=== PATIENT | male | born 1955 | race Hispanic/Latino ===

== ENCOUNTER 2017-02-17 11:16 | Emergency (ER) | payer MEDICARE, OTHER ==
[2017-02-17 11:31] VITALS: TEMP 98.1
--- NOTE | 2017-02-17 11:53 | ED PDOC ---
HPI: Psych/Substance Abuse Time Seen by Provider: 02/17/17 11:53 Chief Complaint (Nursing): Alcohol Ingestion Chief Complaint (Provider): etoh History Per: Patient Additional Complaint(s): 61-year-old male with history of alcohol abuse and asthma presents to emergency department complaining of wheezing. Patient admits to drinking yesterday and today and states that he drinks daily. He arrives via ambulance after being found probably intoxicated. Patient states he is out of his asthma medications and needs a breathing treatment. Past Medical History Reviewed: Historical Data, Nursing Documentation, Vital Signs Vital Signs: Last Vital Signs Temp 98.1 F 02/17/17 11:20 Pulse 81 02/17/17 11:20 Resp 18 02/17/17 11:20 BP 129/75 02/17/17 11:20 Pulse Ox 95 02/17/17 11:20 - Medical History PMH: Asthma, Bipolar Disorder, Diabetes, HTN, Hypercholesterolemia, Hyperlipidemia - Surgical History Surgical History: No Surg Hx - Family History Family History: States: No Known Family Hx - Living Arrangements Living Arrangements: Alone - Social History Current smoker - smoking cessation education provided: Yes Alcohol: > 2 Drinks/Day Drugs: Denies - Home Medications Home Medications: Ambulatory Orders Medication Instructions Recorded Albuterol/Ipratropium [Duoneb 3 3 ml INH RQ4 #0 neb 07/11/15 mg/0.5 mg (3 ml) UD] Dextrose 50% [Dextrose 50% Inj] 0 ml IV STAT PRN #0 syr 07/11/15 Dextrose Oral [Glutose 15] 0 gm PO ONCE PRN #0 tube 07/11/15 Enoxaparin [Lovenox] 40 mg SC DAILY #0 syr 07/11/15 Folic Acid 1 mg PO DAILY #0 tab 07/11/15 Gabapentin [Neurontin] 300 mg PO TID #0 cap 07/11/15 Glucagon [Glucagen Diagnostic Kit] 0 mg IM STAT PRN #0 vial 07/11/15 Haloperidol [Haldol] 2 mg PO Q4 PRN #0 tab 07/11/15 Insulin Detemir [Levemir] 24 units SC AMHS #0 vial 07/11/15 Insulin Human Regular [HumuLIN R] 0 units SC ACHS #0 ml 07/11/15 LORazepam [Ativan] 2 mg IVP Q6 PRN #0 vial 07/11/15 Losartan [Cozaar] 25 mg PO DAILY #0 tab 07/11/15 Multimineral/Multivitamin 1 tab PO DAILY #0 tab 07/11/15 [Therapeutic-M Tab] Naphazoline/Pheniramine Opht 1 drop OU DAILY PRN #0 bottle 07/11/15 [Naphcon-A Opht] Nicotine 21 mg/24 hr [Nicoderm Cq] 1 patch TD DAILY #0 patch 07/11/15 Piperacillin/Tazobact [Zosyn] 2.25 gm IVPB Q8H #8 vial 07/11/15 Pravastatin Sodium [Pravachol] 80 mg PO DAILY #0 tab 07/11/15 QUEtiapine [SEROquel] 200 mg PO HS #0 tab 07/11/15 Thiamine [Vitamin B1 Tab] 100 mg PO DAILY #0 tab 07/11/15 Vancomycin 1 GM [Vancomycin 1GM in 1 gm IVPB Q12 #8 bag 07/11/15 Normal Saline Addvantage] Albuterol HFA [Ventolin HFA 90 1 puff IH Q6 PRN #1 inhaler 02/17/17 mcg/actuation (8 g)] - Allergies Allergies/Adverse Reactions: Allergies Allergy/AdvReac Type Severity Reaction Status Date / Time No Known Allergies Allergy Verified 02/17/17 11:20 Review of Systems ROS Statement: Except As Marked, All Systems Reviewed And Found Negative Constitutional: Negative for: Fever Cardiovascular: Negative for: Chest Pain Respiratory: Positive for: Wheezing Gastrointestinal: Negative for: Nausea, Vomiting Psych: Positive for: Other (etoh) Physical Exam - Reviewed Nursing Documentation Reviewed: Yes Vital Signs Reviewed: Yes - Physical Exam Appears: Positive for: Well, Non-toxic, No Acute Distress Skin: Negative for: Rash Eye Exam: Positive for: Normal appearance, EOMI, PERRL Cardiovascular/Chest: Positive for: Regular Rate, Rhythm Respiratory: Positive for: Wheezing (Diffuse inspiratory and expiratory wheezing ) Extremity: Positive for: Normal ROM. Negative for: Pedal Edema Neurologic/Psych: Positive for: Alert, Oriented - Laboratory Results Result Diagrams: 02/17/17 13:00 02/17/17 13:00 - ECG O2 Sat by Pulse Oximetry: 95 Pulse Ox Interpretation: Normal Medical Decision Making Medical Decision Makin-year-old intoxicated male with asthma exacerbation. Plan: CBC CMP BAL Duoneb x 1 Patient feels better after DuoNeb treatment. He tolerated tray of food and is noted to be ambulatory with steady gait. Prescription given for Ventolin inhaler. Patient was advised to follow up with primary doctor or clinic. Disposition - Clinical Impression Clinical Impression: Alcohol abuse with intoxication, Asthma exacerbation - Patient ED Disposition Is Patient to be Admitted: No Counseled Patient/Family Regarding: Studies Performed, Diagnosis, Need For Followup, Rx Given - Disposition Referrals: [facility] [Outside] Disposition: Routine/Home Disposition Time: 13:39 Condition: STABLE Additional Instructions: Take prescription meds as directed. Follow up with primary doctor or clinic in 2 -3 days. Prescriptions: Albuterol HFA [Ventolin HFA 90 mcg/actuation (8 g)] 1 puff IH Q6 PRN #1 inhaler PRN Reason: Cough Instructions: Asthma (ED), Alcohol Intoxication (ED) Forms: [employer] (Mongolian) Results - Lab Results Lab Results: 02/17/17 02/17/17 13:00 13:00 WBC 7.6 RBC 4.62 Hgb 14.8 Hct 44.7 MCV 96.7 H MCH 32.0 H MCHC 33.1 RDW 13.7 Plt Count 243 D MPV 7.1 L Neut % (Auto) 51.9 Lymph % (Auto) 38.6 [place] % (Auto) 7.1 Eos % (Auto) 1.2 Baso % (Auto) 1.2 Neut # 3.9 Lymph # 2.9 [place] # 0.5 Eos # 0.1 Baso # 0.1 Sodium 145 Potassium 3.9 Chloride 102 Carbon Dioxide 25 Anion Gap 22 H BUN 9 Creatinine 0.7 L Est GFR ( Amer) > 60 Est GFR (Non-Af Amer) > 60 Random Glucose 154 H Calcium 9.3 Total Bilirubin 0.5 AST 87 H ALT 68 Alkaline Phosphatase 88 Total Protein 7.7 Albumin 4.2 Globulin 3.5 Albumin/Globulin Ratio 1.2 Alcohol, Quantitative 278 H
[2017-02-17] MEDS ORDERED: Albuterol-Ipratrop 3 mg / 0.5 (3 ml) UD INH STA (12:07)
[2017-02-17] MEDS ORDERED: Albuterol-Ipratrop 3 mg / 0.5 (3 ml) UD ONE (12:29)
[2017-02-17 13:12] LABS: BASO # 0.1 K/uL (0.0-0.2); BASO % 1.2 % (0.0-2.0); EOS # 0.1 K/uL (0.0-0.7); EOS % 1.2 % (0.0-4.0); HEMATOCRIT 44.7 % (35.0-51.0); LYMPH # 2.9 K/uL (1.0-4.3); LYMPH % 38.6 % (20.0-40.0); MEAN CELL VOLUME 96.7 fl (80.0-94.0); MEAN CORPUSCULAR HGB CONC 33.1 g/dL (33.0-37.0); MEAN PLATELET VOLUME 7.1 fl (7.2-11.7); MONO # 0.5 K/uL (0.0-0.8); MONO % 7.1 % (0.0-10.0); NEUT # 3.9 K/uL (1.8-7.0); NEUT % 51.9 % (50.0-75.0); RED CELL DISTRIBUTION WIDTH 13.7 % (11.5-14.5); WHITE BLOOD COUNT 7.6 K/uL (4.8-10.8)
[2017-02-17 13:29] LABS: ALB/GLOB RATIO 1.2 (1.0-2.1); ALCOHOL SERUM 278 mg/dl (0-10); ALKALINE PHOSPHATASE 88 U/L (38-126); ALT/SGPT 68 U/L (21-72); AST/SGOT 87 U/L (17-59); BILIRUBIN,TOTAL 0.5 mg/dl (0.2-1.3); BLOOD UREA NITROGEN 9 mg/dl (9-20); CALCIUM 9.3 mg/dL (8.4-10.2); CARBON DIOXIDE 25 mmol/L (22-30); CHLORIDE 102 mmol/L (98-107); GFR AFRICAN-AMERICAN > 60; GLUCOSE,RANDOM 154 mg/dL (75-110); POTASSIUM 3.9 MMOL/L (3.6-5.0); SODIUM 145 mmol/l (132-148); TOTAL PROTEIN 7.7 G/DL (6.3-8.2)
[2017-02-17 14:27] VITALS: BP 126/80; PULSE 80; RESP 20; O2SAT 99
== END 2017-02-17 14:28 | disposition home or self-care (01) ==
LOC: H.ER 11:16
DX: J45.901 Unspecified asthma with (acute) exacerbation (principal); F10.129 Alcohol abuse with intoxication, unspecified; Y90.8 Blood alcohol level of 240 mg/100 ml or more; F17.210 Nicotine dependence, cigarettes, uncomplicated
CPT/HCPCS: 80053; 85025; 94640; 99282; G0480

== ENCOUNTER 2017-05-24 18:59 | Emergency (ER) | payer MEDICARE, OTHER ==
[2017-05-24 19:03] VITALS: TEMP 98
[2017-05-24 21:15] LABS: BASO % 0.7 % (0.0-2.0); EOS % 0.1 % (0.0-4.0); HEMOGLOBIN 14.1 g/dL (12.0-18.0); LYMPH # 1.6 K/uL (1.0-4.3); LYMPH % 29.4 % (20.0-40.0); MEAN CELL VOLUME 95.8 fl (80.0-94.0); MEAN CORPUSCULAR HEMOGLOBIN 31.2 pg (27.0-31.0); MEAN CORPUSCULAR HGB CONC 32.5 g/dL (33.0-37.0); MEAN PLATELET VOLUME 7.3 fl (7.2-11.7); MONO # 0.3 K/uL (0.0-0.8); MONO % 6.1 % (0.0-10.0); NEUT # 3.5 K/uL (1.8-7.0); NEUT % 63.7 % (50.0-75.0); NRBC % 0.1 % (0.0-0.0); RBC 4.52 Mil/uL (4.40-5.90); RED CELL DISTRIBUTION WIDTH 13.7 % (11.5-14.5); WHITE BLOOD COUNT 5.5 K/uL (4.8-10.8)
[2017-05-24 21:37] LABS: BLOOD UREA NITROGEN 14 mg/dl (9-20); CALCIUM 8.8 mg/dL (8.4-10.2); GFR AFRICAN-AMERICAN > 60; GFR NON-AFRICAN AMERICAN > 60
--- NOTE | 2017-05-24 21:45 | ED PDOC ---
HPI: Psych/Substance Abuse Time Seen by Provider: 05/24/17 19:14 Chief Complaint (Nursing): Psychiatric Evaluation Chief Complaint (Provider): Alcohol Intoxication History Per: Patient History/Exam Limitations: intoxication Modifying Factor(s): Alcohol Associated Symptoms: Depression Additional Complaint(s): 61 year old male presents to the emergency department with alcohol intoxication. Also complaining of auditory and visual hallucinations. He mentions he wants to hurt himself and has a history of schizophrenia. Limited and further history could not be obtained due to alcohol intoxication. PCP: Family Provider Past Medical History Reviewed: Historical Data, Nursing Documentation, Vital Signs Vital Signs: Last Vital Signs Temp 98 F 05/24/17 19:00 Pulse 121 H 05/24/17 19:00 Resp 18 05/24/17 19:00 BP 155/95 H 05/24/17 19:00 Pulse Ox 98 05/24/17 19:00 - Medical History PMH: Asthma, Bipolar Disorder, Diabetes, Fractures, HTN, Hypercholesterolemia, Hyperlipidemia, Schizophrenia Denies: Alzheimer's Disease, Anemia, Anxiety, Arthritis, Atrial Fibrillation , Bronchitis, CAD, Cardia Arrhythmia, CHF, COPD, Crohn's Disease, Dementia, Depression, Diverticulitis, Emphysema, Gastritis, Gall Bladder Disease, HIV, Hyperthyroidism, Hypothyroidism, Kidney Stones, Migraine, Mitral Valve Prolapse , Multiple Sclerosis, Osteoporosis, Pancreatitis, Paranoia, Parkinson's Disease , Peripheral Edema, Pneumonia, Post Traumatic Stress Disorder, Pulmonary Embolism, Chronic Kidney Disease, Rheumatoid Arthritis, Seizures, Sickle Cell Disease, Sexually Transmitted Disease, Sleep Apnea, TIA - Surgical History Surgical History: Denies: Appendectomy, CABG, Carotid Endarterectomy, Cholecystectomy, Coronary Stent, Pacemaker, Tonsillectomy - Family History Family History: States: Unknown Family Hx - Home Medications Home Medications: Ambulatory Orders Medication Instructions Recorded Albuterol/Ipratropium [Duoneb 3 3 ml INH RQ4 #0 neb 07/11/15 mg/0.5 mg (3 ml) UD] Dextrose 50% [Dextrose 50% Inj] 0 ml IV STAT PRN #0 syr 07/11/15 Dextrose Oral [Glutose 15] 0 gm PO ONCE PRN #0 tube 07/11/15 Enoxaparin [Lovenox] 40 mg SC DAILY #0 syr 07/11/15 Folic Acid 1 mg PO DAILY #0 tab 07/11/15 Gabapentin [Neurontin] 300 mg PO TID #0 cap 07/11/15 Glucagon [Glucagen Diagnostic Kit] 0 mg IM STAT PRN #0 vial 07/11/15 Haloperidol [Haldol] 2 mg PO Q4 PRN #0 tab 07/11/15 Insulin Detemir [Levemir] 24 units SC AMHS #0 vial 07/11/15 Insulin Human Regular [HumuLIN R] 0 units SC ACHS #0 ml 07/11/15 LORazepam [Ativan] 2 mg IVP Q6 PRN #0 vial 07/11/15 Losartan [Cozaar] 25 mg PO DAILY #0 tab 07/11/15 Multimineral/Multivitamin 1 tab PO DAILY #0 tab 07/11/15 [Therapeutic-M Tab] Naphazoline/Pheniramine Opht 1 drop OU DAILY PRN #0 bottle 07/11/15 [Naphcon-A Opht] Nicotine 21 mg/24 hr [Nicoderm Cq] 1 patch TD DAILY #0 patch 07/11/15 Piperacillin/Tazobact [Zosyn] 2.25 gm IVPB Q8H #8 vial 07/11/15 Pravastatin Sodium [Pravachol] 80 mg PO DAILY #0 tab 07/11/15 QUEtiapine [SEROquel] 200 mg PO HS #0 tab 07/11/15 Thiamine [Vitamin B1 Tab] 100 mg PO DAILY #0 tab 07/11/15 Vancomycin 1 GM [Vancomycin 1GM in 1 gm IVPB Q12 #8 bag 07/11/15 Normal Saline Addvantage] Albuterol HFA [Ventolin HFA 90 1 puff IH Q6 PRN #1 inhaler 02/17/17 mcg/actuation (8 g)] - Allergies Allergies/Adverse Reactions: Allergies Allergy/AdvReac Type Severity Reaction Status Date / Time No Known Allergies Allergy Verified 02/17/17 11:20 Review of Systems ROS Statement: Except As Marked, All Systems Reviewed And Found Negative (As per HPI, otherwise negative and history is limited due to intoxication) Psych: Positive for: Other (Auditory and visual hallucination) Physical Exam - Reviewed Nursing Documentation Reviewed: Yes Vital Signs Reviewed: Yes - Physical Exam Appears: Positive for: Non-toxic, No Acute Distress Head Exam: Positive for: ATRAUMATIC, NORMAL INSPECTION, NORMOCEPHALIC Skin: Positive for: Normal Color, Warm, Dry Cardiovascular/Chest: Positive for: Regular Rate, Rhythm. Negative for: Murmur Respiratory: Positive for: Normal Breath Sounds. Negative for: Accessory Muscle Use, Respiratory Distress Gastrointestinal/Abdominal: Positive for: Normal Exam, Soft. Negative for: Tenderness Extremity: Positive for: Normal ROM. Negative for: Pedal Edema Neurologic/Psych: Positive for: Alert, Oriented, Mood/Affect (weeping depressed affect), Other (Smells of alcohol ) - Laboratory Results Result Diagrams: 05/24/17 20:02 05/24/17 20:02 - ECG O2 Sat by Pulse Oximetry: 98 (RA) Pulse Ox Interpretation: Normal Medical Decision Making Medical Decision Making: Time: 19:36 Initial impression: schizophrenia, depression, and alcohol abuse Initial plan: Alcohol Serum Test Basic Metabolic Panel Drug Screen, Urine Test Salicylate Test Ativan 2 mg IM Urinalysis Time: 20:02 Alcohol, Quantitative: 405 High 05:30 --Pt is awake, alert and oriented. Pt was cleared by crisis with diagnosis of alcohol use disorder by Daniel Kuhn under Dr. Mena. --Upon provider evaluation patient is medically stable, and requires no further treatment in the ED at this time. Patient will be discharged home. Counseling was provided and all questions were answered regarding diagnosis. There is agreement to discharge plan. Return if symptoms persist or worsen. Scribe Attestation: Documented by Yo Pop, acting as a scribe for Kaleb White MD. Provider Scribe Attestation: All medical record entries made by the Scribe were at my direction and personally dictated by me. I have reviewed the chart and agree that the record accurately reflects my personal performance of the history, physical exam, medical decision making, and the department course for this patient. I have also personally directed, reviewed, and agree with the discharge instructions and disposition Disposition - Clinical Impression Clinical Impression: Alcohol abuse with intoxication - Disposition Referrals: Alcoholics Anonymous [Outside] [facility] [Outside] Disposition Time: 05:30 Condition: STABLE Instructions: Depression (ED), Abuse of Alcohol (ED), Suicide Prevention for Adults (DC) Forms: [employer] (Yoruba) Print Language: LUXEMBOURGER
[2017-05-24 23:11] LABS: BARBITURATES, UR NEGATIVE (NEGATIVE); BENZODIAZEPINES, UR NEGATIVE (NEGATIVE); OPIATES, UR NEGATIVE (NEGATIVE); PHENCYCLIDINE, UR NEGATIVE (NEGATIVE)
[2017-05-25 02:16] LABS: URINE CLARITY SLIGHT-CLOUDY (Clear); URINE COLOR AMBER (YELLOW); URINE GLUCOSE (UA) 50 mg/dL (Normal)
[2017-05-25 02:17] LABS: URINE BILIRUBIN NEGATIVE (NEGATIVE); URINE BLOOD SMALL (NEGATIVE); URINE PROTEIN 100 mg/dL (NEGATIVE)
[2017-05-25 02:18] LABS: SQUAMOUS EPITHIAL 1 /hpf (0-5); URINE LEUKOCYTE ESTERASE NEGATIVE Leu/uL (Negative); URINE NITRATE NEGATIVE (NEGATIVE)
[2017-05-25 06:48] VITALS: BP 145/90; PULSE 99; RESP 16; O2SAT 95
== END 2017-05-25 06:48 | disposition home or self-care (01) ==
LOC: H.ER 18:59
DX: F10.129 Alcohol abuse with intoxication, unspecified (principal); E11.9 Type 2 diabetes mellitus without complications; E78.00 Pure hypercholesterolemia, unspecified; F20.9 Schizophrenia, unspecified; F31.9 Bipolar disorder, unspecified; I10 Essential (primary) hypertension; J45.909 Unspecified asthma, uncomplicated; Z79.4 Long term (current) use of insulin
CPT/HCPCS: 80048; 81003; 85025; 96372; 99283; G0480; J2060

== ENCOUNTER 2017-05-26 18:35 | Emergency (ER) | payer MEDICARE ==
[2017-05-26 18:39] VITALS: RESP 18; TEMP 98.2
--- NOTE | 2017-05-26 21:22 | ED PDOC ---
HPI: Psych/Substance Abuse Time Seen by Provider: 05/26/17 18:48 Chief Complaint (Nursing): Alcohol Ingestion Chief Complaint (Provider): alcohol intoxication ED Caveat: Intoxicated Additional Complaint(s): BIBEMS for intoxication and hearing voices and feeling depressed. Pt poor historian due to intoxication. Poor concentration. Answer questions unintelligibly. Past Medical History Vital Signs: Last Vital Signs Temp 98.2 F 05/26/17 18:37 Pulse 106 H 05/26/17 18:37 Resp 18 05/26/17 18:37 BP 140/95 H 05/26/17 18:37 Pulse Ox 98 05/26/17 18:37 - Medical History PMH: Asthma, Bipolar Disorder, Diabetes, Fractures, HTN, Hypercholesterolemia, Hyperlipidemia, Schizophrenia Denies: Alzheimer's Disease, Anemia, Anxiety, Arthritis, Atrial Fibrillation , Bronchitis, CAD, Cardia Arrhythmia, CHF, COPD, Crohn's Disease, Dementia, Depression, Diverticulitis, Emphysema, Gastritis, Gall Bladder Disease, Hepatitis, HIV, Hyperthyroidism, Hypothyroidism, Kidney Stones, Migraine, Mitral Valve Prolapse, Multiple Sclerosis, Osteoporosis, Pancreatitis, Paranoia , Parkinson's Disease, Peripheral Edema, Pneumonia, Post Traumatic Stress Disorder, Pulmonary Embolism, Chronic Kidney Disease, Rheumatoid Arthritis, Seizures, Sickle Cell Disease, Sexually Transmitted Disease, Sleep Apnea, TIA Other PMH: Above pulled from previous charts - Surgical History Surgical History: Denies: Appendectomy, CABG, Carotid Endarterectomy, Cholecystectomy, Coronary Stent, Pacemaker, Tonsillectomy - Family History Family History: States: Unknown Family Hx - Home Medications Home Medications: Ambulatory Orders Medication Instructions Recorded Albuterol/Ipratropium [Duoneb 3 3 ml INH RQ4 #0 neb 07/11/15 mg/0.5 mg (3 ml) UD] Dextrose 50% [Dextrose 50% Inj] 0 ml IV STAT PRN #0 syr 07/11/15 Dextrose Oral [Glutose 15] 0 gm PO ONCE PRN #0 tube 07/11/15 Enoxaparin [Lovenox] 40 mg SC DAILY #0 syr 07/11/15 Folic Acid 1 mg PO DAILY #0 tab 07/11/15 Gabapentin [Neurontin] 300 mg PO TID #0 cap 07/11/15 Glucagon [Glucagen Diagnostic Kit] 0 mg IM STAT PRN #0 vial 02/23/16 Haloperidol [Haldol] 2 mg PO Q4 PRN #0 tab 07/11/15 Insulin Detemir [Levemir] 24 units SC AMHS #0 vial 07/11/15 Insulin Human Regular [HumuLIN R] 0 units SC ACHS #0 ml 07/11/15 LORazepam [Ativan] 2 mg IVP Q6 PRN #0 vial 07/11/15 Losartan [Cozaar] 25 mg PO DAILY #0 tab 07/11/15 Multimineral/Multivitamin 1 tab PO DAILY #0 tab 07/11/15 [Therapeutic-M Tab] Naphazoline/Pheniramine Opht 1 drop OU DAILY PRN #0 bottle 07/11/15 [Naphcon-A Opht] Nicotine 21 mg/24 hr [Nicoderm Cq] 1 patch TD DAILY #0 patch 07/11/15 Piperacillin/Tazobact [Zosyn] 2.25 gm IVPB Q8H #8 vial 07/11/15 Pravastatin Sodium [Pravachol] 80 mg PO DAILY #0 tab 07/11/15 QUEtiapine [SEROquel] 200 mg PO HS #0 tab 07/11/15 Thiamine [Vitamin B1 Tab] 100 mg PO DAILY #0 tab 07/11/15 Vancomycin 1 GM [Vancomycin 1GM in 1 gm IVPB Q12 #8 bag 07/11/15 Normal Saline Addvantage] Albuterol HFA [Ventolin HFA 90 1 puff IH Q6 PRN #1 inhaler 02/17/17 mcg/actuation (8 g)] - Allergies Allergies/Adverse Reactions: Allergies Allergy/AdvReac Type Severity Reaction Status Date / Time No Known Allergies Allergy Verified 02/17/17 11:20 Review of Systems Review Of Systems: ROS cannot be obtained secondary to pt's inabilty to answer questions. Physical Exam - Reviewed Nursing Documentation Reviewed: Yes Vital Signs Reviewed: Yes - Physical Exam Appears: Positive for: In Acute Distress (tearful and intoxicated) Head Exam: Positive for: ATRAUMATIC, NORMOCEPHALIC Skin: Positive for: Warm, Dry Eye Exam: Positive for: EOMI, Conjunctival injection ENT: Positive for: Pharynx Is (clear with tacky mucus membranes) Neck: Positive for: Painless ROM, Supple Cardiovascular/Chest: Positive for: Regular Rate, Rhythm, Chest Non Tender. Negative for: Murmur Respiratory: Positive for: Normal Breath Sounds. Negative for: Wheezing Gastrointestinal/Abdominal: Positive for: Soft. Negative for: Tenderness Back: Positive for: Normal Inspection. Negative for: Decreased ROM Extremity: Positive for: Normal ROM. Negative for: Deformity Lymphatic: Negative for: Adenopathy Neurologic/Psych: Positive for: Oriented (x2), Other (slurred speech). Negative for: Motor/Sensory Deficits - Laboratory Results Result Diagrams: 05/26/17 23:43 05/26/17 23:43 - ECG O2 Sat by Pulse Oximetry: 98 Disposition - Clinical Impression Clinical Impression: Alcohol abuse - Patient ED Disposition Is Patient to be Admitted: Transfer of Care - Disposition Disposition: Transfer of Care Disposition Time: 00:00 Condition: IMPROVED Patient Signed Over To: Man Coleman Handoff Comments: Pending ER workup, reassessment and final ER disposition
[2017-05-26 23:48] LABS: BASO % 1.1 % (0.0-2.0); EOS # 0.1 K/uL (0.0-0.7); EOS % 1.6 % (0.0-4.0); HEMOGLOBIN 13.6 g/dL (12.0-18.0); LYMPH # 1.9 K/uL (1.0-4.3); LYMPH % 45.4 % (20.0-40.0); MEAN CELL VOLUME 94.7 fl (80.0-94.0); MEAN CORPUSCULAR HEMOGLOBIN 31.2 pg (27.0-31.0); MEAN PLATELET VOLUME 7.3 fl (7.2-11.7); MONO # 0.4 K/uL (0.0-0.8); MONO % 8.7 % (0.0-10.0); NEUT # 1.8 K/uL (1.8-7.0); NEUT % 43.2 % (50.0-75.0); NRBC % 0.1 % (0.0-0.0); RBC 4.36 Mil/uL (4.40-5.90); RED CELL DISTRIBUTION WIDTH 13.9 % (11.5-14.5); WHITE BLOOD COUNT 4.1 K/uL (4.8-10.8)
[2017-05-27 00:03] LABS: ALB/GLOB RATIO 1.2 (1.0-2.1); ALBUMIN 4.2 g/dL (3.5-5.0); ALT/SGPT 84 U/L (21-72); AST/SGOT 133 U/L (17-59); BLOOD UREA NITROGEN 12 mg/dl (9-20); CALCIUM 9.4 mg/dL (8.4-10.2); GFR AFRICAN-AMERICAN > 60; GFR NON-AFRICAN AMERICAN > 60
--- NOTE | 2017-05-27 00:44 | ED PDOC ---
- Laboratory Results Result Diagrams: 05/26/17 23:43 05/26/17 23:43 - ECG O2 Sat by Pulse Oximetry: 98 (RA) Pulse Ox Interpretation: Normal Medical Decision Making Medical Decision Making: Time: 00:00 Patient was endorsed to me by Dr. Keren Bee as of this time. Pending clinical sobriety and crisis evaluation. Labs reviewed, alcohol is 266. Time: 03:54 Crisis made aware of patient. Time:05:47 Discussed with rice field worker and patient will be discharged per Dr. Mena Scribe Attestation: Documented by Mary Carvajal, acting as a scribe for Man Coleman MD Provider Scribe Attestation: All medical record entries made by the Scribe were at my direction and personally dictated by me. I have reviewed the chart and agree that the record accurately reflects my personal performance of the history, physical exam, medical decision making, and the department course for this patient. I have also personally directed, reviewed, and agree with the discharge instructions and disposition. Disposition Counseled Patient/Family Regarding: Diagnosis, Need For Followup - Clinical Impression Clinical Impression: Alcohol abuse - POA Present On Arrival: None - Disposition Disposition: Routine/Home Disposition Time: 05:47 Condition: IMPROVED Additional Instructions: follow up with outpatient psychiatry return to the ED with any worsening or concerning symptoms Instructions: Alcohol Intoxication (ED) Forms: [employer] (Cape Verdean)
[2017-05-27 03:35] VITALS: O2SAT 98
[2017-05-27 06:06] VITALS: BP 135/85; PULSE 81
[2017-05-27] MEDS ORDERED: Thiamine 100 mg/ml Inj ONE (14:58)
== END 2017-05-27 06:05 | disposition home or self-care (01) ==
LOC: H.ER 18:35
DX: F10.129 Alcohol abuse with intoxication, unspecified (principal); F20.9 Schizophrenia, unspecified; F31.9 Bipolar disorder, unspecified; E11.9 Type 2 diabetes mellitus without complications; E78.00 Pure hypercholesterolemia, unspecified; I10 Essential (primary) hypertension; J45.909 Unspecified asthma, uncomplicated; Z79.4 Long term (current) use of insulin
CPT/HCPCS: 80053; 82948; 85025; 99283; G0480

== ENCOUNTER 2017-05-27 14:15 | Emergency (ER) | payer MEDICARE ==
[2017-05-27 14:19] VITALS: RESP 18; TEMP 98; O2SAT 95
--- NOTE | 2017-05-27 14:36 | ED PDOC ---
HPI: Altered Mental Status Time Seen by Provider: 05/27/17 14:21 Chief Complaint (Nursing): Altered Mental Status Chief Complaint (Provider): Altered Mental Status History Per: EMS History/Exam Limitations: Clinical Condition Onset/Duration Of Symptoms: Hrs (prior to arrival) Additional Complaint(s): 61 year old male presents to the emergency department via EMS after being called for possible seizure prior to arrival. Upon arrival, EMS noted patient to be shaking while standing and remaining awake. Patient has a history of daily alcohol abuse. Unknown when last drink was. Past Medical History Reviewed: Historical Data, Nursing Documentation, Vital Signs Vital Signs: Last Vital Signs Temp 98.0 F 05/27/17 14:17 Pulse 124 H 05/27/17 14:17 Resp 18 05/27/17 14:17 BP 178/110 H 05/27/17 14:17 Pulse Ox 95 05/27/17 14:17 - Medical History PMH: Asthma, Bipolar Disorder, Diabetes, Fractures, HTN, Hypercholesterolemia, Hyperlipidemia, Schizophrenia Denies: Alzheimer's Disease, Anemia, Anxiety, Arthritis, Atrial Fibrillation , Bronchitis, CAD, Cardia Arrhythmia, CHF, COPD, Crohn's Disease, Dementia, Depression, Diverticulitis, Emphysema, Gastritis, Gall Bladder Disease, Hepatitis, HIV, Hyperthyroidism, Hypothyroidism, Kidney Stones, Migraine, Mitral Valve Prolapse, Multiple Sclerosis, Osteoporosis, Pancreatitis, Paranoia , Parkinson's Disease, Peripheral Edema, Pneumonia, Post Traumatic Stress Disorder, Pulmonary Embolism, Chronic Kidney Disease, Rheumatoid Arthritis, Seizures, Sickle Cell Disease, Sexually Transmitted Disease, Sleep Apnea, TIA - Surgical History Surgical History: Denies: Appendectomy, CABG, Carotid Endarterectomy, Cholecystectomy, Coronary Stent, Pacemaker, Tonsillectomy - Family History Family History: States: Unknown Family Hx - Home Medications Home Medications: Ambulatory Orders Medication Instructions Recorded Albuterol/Ipratropium [Duoneb 3 3 ml INH RQ4 #0 neb 07/11/15 mg/0.5 mg (3 ml) UD] Dextrose 50% [Dextrose 50% Inj] 0 ml IV STAT PRN #0 syr 07/11/15 Dextrose Oral [Glutose 15] 0 gm PO ONCE PRN #0 tube 07/11/15 Enoxaparin [Lovenox] 40 mg SC DAILY #0 syr 07/11/15 Folic Acid 1 mg PO DAILY #0 tab 07/11/15 Gabapentin [Neurontin] 300 mg PO TID #0 cap 07/11/15 Glucagon [Glucagen Diagnostic Kit] 0 mg IM STAT PRN #0 vial 07/11/15 Haloperidol [Haldol] 2 mg PO Q4 PRN #0 tab 07/11/15 Insulin Detemir [Levemir] 24 units SC AMHS #0 vial 07/11/15 Insulin Human Regular [HumuLIN R] 0 units SC ACHS #0 ml 07/11/15 LORazepam [Ativan] 2 mg IVP Q6 PRN #0 vial 07/11/15 Losartan [Cozaar] 25 mg PO DAILY #0 tab 07/11/15 Multimineral/Multivitamin 1 tab PO DAILY #0 tab 07/11/15 [Therapeutic-M Tab] Naphazoline/Pheniramine Opht 1 drop OU DAILY PRN #0 bottle 07/11/15 [Naphcon-A Opht] Nicotine 21 mg/24 hr [Nicoderm Cq] 1 patch TD DAILY #0 patch 07/11/15 Piperacillin/Tazobact [Zosyn] 2.25 gm IVPB Q8H #8 vial 07/11/15 Pravastatin Sodium [Pravachol] 80 mg PO DAILY #0 tab 07/11/15 QUEtiapine [SEROquel] 200 mg PO HS #0 tab 07/11/15 Thiamine [Vitamin B1 Tab] 100 mg PO DAILY #0 tab 07/11/15 Vancomycin 1 GM [Vancomycin 1GM in 1 gm IVPB Q12 #8 bag 07/11/15 Normal Saline Addvantage] Albuterol HFA [Ventolin HFA 90 1 puff IH Q6 PRN #1 inhaler 02/17/17 mcg/actuation (8 g)] chlordiazePOXIDE [Chlordiazepoxide 25 mg PO Q8 #9 cap 05/27/17 HCl] - Allergies Allergies/Adverse Reactions: Allergies Allergy/AdvReac Type Severity Reaction Status Date / Time No Known Allergies Allergy Verified 02/17/17 11:20 Review of Systems Review Of Systems: ROS cannot be obtained secondary to pt's inabilty to answer questions. (Patient is unable to provide history due to clinical condition) Physical Exam - Reviewed Nursing Documentation Reviewed: Yes Vital Signs Reviewed: Yes - Physical Exam Appears: Positive for: Non-toxic, No Acute Distress Head Exam: Positive for: ATRAUMATIC, NORMAL INSPECTION, NORMOCEPHALIC Skin: Positive for: Normal Color, Warm, Dry Eye Exam: Positive for: Normal appearance, EOMI, PERRL Neck: Positive for: Normal, Painless ROM, Supple Cardiovascular/Chest: Positive for: Regular Rate, Rhythm. Negative for: Murmur Respiratory: Positive for: Normal Breath Sounds (bilaterally). Negative for: Accessory Muscle Use, Respiratory Distress Gastrointestinal/Abdominal: Positive for: Normal Exam, Soft. Negative for: Tenderness Extremity: Positive for: Normal ROM (Full range of motion). Negative for: Pedal Edema Neurologic/Psych: Positive for: Alert (Awake but confused), Oriented (x0), Other (Equal strength noted to all extremities with no motor or sensory deficits noted. ) - Laboratory Results Result Diagrams: 05/27/17 15:10 05/27/17 15:10 - ECG O2 Sat by Pulse Oximetry: 95 (RA) Pulse Ox Interpretation: Normal - Progress Re-evaluation Time: 16:47 Condition: Improved (Awake alert oriented x 3 no tremors) Medical Decision Making Medical Decision Making: Time:1426 Initial impression: Possible seizure in setting of known daily alcohol abuse Initial plan: --EKG --Alcohol Serum --CMP --Drug Screen, Urine --Urine DIP --CBC w. diff --Librium 25 mg PO --Sodium Chloride 1L IV --Vitamin B1 inj 100 mg IM --Chest x-ray --Head CT --Reevaluation Time: 1442 --Chest x-ray FINDINGS: LUNGS: No active pulmonary disease. PLEURA: No significant pleural effusion identified, no pneumothorax apparent. CARDIOVASCULAR: Cardiomediastinal silhouette unchanged. OSSEOUS STRUCTURES: Unchanged. VISUALIZED UPPER ABDOMEN: Normal. OTHER FINDINGS: None. IMPRESSION: No active disease. Time: 1456 --Head CT FINDINGS: HEMORRHAGE: No intracranial hemorrhage. BRAIN: No mass effect or edema. Mild cerebral atrophy and mild periventricular white matter chronic microvascular ischemic changes. VENTRICLES: Unremarkable. No hydrocephalus. CALVARIUM: Unremarkable. PARANASAL SINUSES: Unremarkable as visualized. No significant inflammatory changes. MASTOID AIR CELLS: Unremarkable as visualized. No inflammatory changes. OTHER FINDINGS: None. IMPRESSION: No acute intracranial pathology. Time: 1510 --Random Glucose: 286 (High) --Alcohol, Quantitative: <10 Scribe Attestation: Documented by Precious Goldberg, acting as a scribe for Thad Field MD. Provider Scribe Attestation: All medical record entries made by the Scribe were at my direction and personally dictated by me. I have reviewed the chart and agree that the record accurately reflects my personal performance of the history, physical exam, medical decision making, and the department course for this patient. I have also personally directed, reviewed, and agree with the discharge instructions and disposition. Disposition - Clinical Impression Clinical Impression: Alcohol withdrawal - Patient ED Disposition Is Patient to be Admitted: No Counseled Patient/Family Regarding: Studies Performed, Diagnosis, Need For Followup, Rx Given - Disposition Referrals: [facility] [Outside] Disposition: Routine/Home Disposition Time: 16:47 Condition: FAIR Prescriptions: chlordiazePOXIDE [Chlordiazepoxide HCl] 25 mg PO Q8 #9 cap Instructions: Alcohol Withdrawal (ED) Forms: [facility] (Tajik) Print Language: LATVIAN
--- NOTE | 2017-05-27 14:43 | RAD ---
HISTORY: cough COMPARISON: Chest radiograph dated 07/10/2015 FINDINGS: LUNGS: No active pulmonary disease. PLEURA: No significant pleural effusion identified, no pneumothorax apparent. CARDIOVASCULAR: Cardiomediastinal silhouette unchanged. OSSEOUS STRUCTURES: Unchanged. VISUALIZED UPPER ABDOMEN: Normal. OTHER FINDINGS: None. IMPRESSION: No active disease.
--- NOTE | 2017-05-27 14:58 | CT ---
PROCEDURE: CT HEAD WITHOUT CONTRAST. HISTORY: r/o bleed COMPARISON: None available. TECHNIQUE: Axial computed tomography images were obtained through the head/brain without intravenous contrast. Radiation dose: Total exam DLP = 1036.6 mGy-cm. This CT exam was performed using one or more of the following dose reduction techniques: Automated exposure control, adjustment of the mA and/or kV according to patient size, and/or use of iterative reconstruction technique. FINDINGS: HEMORRHAGE: No intracranial hemorrhage. BRAIN: No mass effect or edema. Mild cerebral atrophy and mild periventricular white matter chronic microvascular ischemic changes. VENTRICLES: Unremarkable. No hydrocephalus. CALVARIUM: Unremarkable. PARANASAL SINUSES: Unremarkable as visualized. No significant inflammatory changes. MASTOID AIR CELLS: Unremarkable as visualized. No inflammatory changes. OTHER FINDINGS: None. IMPRESSION: No acute intracranial pathology.
[2017-05-27] MEDS: Thiamine 100 mg/ml Inj IM ONE (15:02)
[2017-05-27] MEDS: Sodium Chloride 0.9% 1,000 ML IV STA (15:02)
[2017-05-27 15:25] LABS: BASO % 0.6 % (0.0-2.0); HEMOGLOBIN 14.3 g/dL (12.0-18.0); LYMPH # 0.6 K/uL (1.0-4.3); LYMPH % 9.7 % (20.0-40.0); MEAN CORPUSCULAR HEMOGLOBIN 31.4 pg (27.0-31.0); MEAN PLATELET VOLUME 7.5 fl (7.2-11.7); MONO # 0.6 K/uL (0.0-0.8); MONO % 8.4 % (0.0-10.0); NEUT # 5.4 K/uL (1.8-7.0); NEUT % 81.3 % (50.0-75.0); NRBC % 0.1 % (0.0-0.0); PLATELET COUNT 101 K/uL (130-400); RBC 4.57 Mil/uL (4.40-5.90); RED CELL DISTRIBUTION WIDTH 13.9 % (11.5-14.5); WHITE BLOOD COUNT 6.7 K/uL (4.8-10.8)
[2017-05-27 15:54] LABS: ALB/GLOB RATIO 1.2 (1.0-2.1); ALBUMIN 4.9 g/dL (3.5-5.0); ALT/SGPT 93 U/L (21-72); AST/SGOT 141 U/L (17-59); BLOOD UREA NITROGEN 9 mg/dl (9-20); GFR AFRICAN-AMERICAN > 60; GFR NON-AFRICAN AMERICAN > 60
[2017-05-27 16:21] LABS: LYMPHOCYTE 6 % (20-50); MONOCYTE 4 % (0-10); NEUTROPHIL 90 % (42-75); PLATELET ESTIMATE DECREASED (NORMAL); TOTAL CELLS COUNTED 100
[2017-05-27 17:14] VITALS: BP 154/90; PULSE 97
--- NOTE | 2017-05-28 11:03 | CARD ---
APPROVED REPORT EKG Measurement Heart [id number] <Conclusion> Sinus tachycardia Inferior infarct, age undetermined Abnormal ECG
== END 2017-05-27 17:10 | disposition home or self-care (01) ==
LOC: H.ER 14:15
DX: F10.239 Alcohol dependence with withdrawal, unspecified (principal); E11.9 Type 2 diabetes mellitus without complications; E78.00 Pure hypercholesterolemia, unspecified; F20.9 Schizophrenia, unspecified; F31.9 Bipolar disorder, unspecified; I10 Essential (primary) hypertension; J45.909 Unspecified asthma, uncomplicated; Z79.4 Long term (current) use of insulin
CPT/HCPCS: 70450; 71045; 80053; 85025; 93005; 96372; 99285; G0480; J3411; J7040

== ENCOUNTER 2018-05-08 05:56 | Inpatient (IN) | payer MEDICARE, OTHER ==
[2018-05-08 05:56] VITALS: BMI 30.7
--- NOTE | 2018-05-08 06:42 | ED PDOC ---
HPI: Psych/Substance Abuse Time Seen by Provider: 05/08/18 06:10 Chief Complaint (Nursing): Psychiatric Evaluation Chief Complaint (Provider): Psychiatric Evaluation ED Caveat: Intoxicated History Per: Patient, Family (Daughter) History/Exam Limitations: intoxication Onset/Duration Of Symptoms: Hrs (x4) Modifying Factor(s): Alcohol Associated Symptoms: Suicidal Thoughts Additional Complaint(s): 62 y/o male with history of bipolar disorder, schizophrenia, hypertension and diabetes brought in for suicidal declaration. Patient admits to drinking alcohol since 2 am and reports he drank approximately a liter. Daughter is on bedside and reports patient is noncompliant with medications. PMD: non provided Full HPI and ROS are limited due to patient's intoxicated states. Past Medical History Reviewed: Historical Data, Nursing Documentation, Vital Signs Vital Signs: Last Vital Signs Temp 98.7 F 05/08/18 06:12 Pulse 98 H 05/08/18 06:12 Resp 18 05/08/18 06:12 BP 131/101 H 05/08/18 06:12 Pulse Ox 99 05/08/18 06:12 - Medical History PMH: Asthma, Bipolar Disorder, Diabetes, Fractures, HTN, Hypercholesterolemia, Hyperlipidemia, Schizophrenia Denies: Alzheimer's Disease, Anemia, Anxiety, Arthritis, Atrial Fibrillation, Bronchitis, CAD, Cardia Arrhythmia, CHF, COPD, Crohn's Disease, Dementia, Depression, Diverticulitis, Emphysema, Gastritis, Gall Bladder Disease, Hepatitis, HIV, Hyperthyroidism, Hypothyroidism, Kidney Stones, Migraine, Mitral Valve Prolapse, Multiple Sclerosis, Osteoporosis, Pancreatitis, Paranoia, Parkinson's Disease, Peripheral Edema, Pneumonia, Post Traumatic Stress Disorder, Pulmonary Embolism, Chronic Kidney Disease, Rheumatoid Arthritis, Seizures, Sickle Cell Disease, Sexually Transmitted Disease, Sleep Apnea, TIA - Surgical History Surgical History: Denies: Appendectomy, CABG, Carotid Endarterectomy, Cholecystectomy, Coronary Stent, Pacemaker, Tonsillectomy - Family History Family History: States: Unknown Family Hx - Social History Current smoker - smoking cessation education provided: Yes Alcohol: > 2 Drinks/Day Drugs: Denies - Home Medications Home Medications: Ambulatory Orders Medication Instructions Recorded Albuterol Sulfate [Proair Hfa] 2 puff IH Q4 PRN 05/08/18 Clopidogrel [Plavix] 75 mg PO DAILY 05/08/18 Ergocalciferol (Vitamin D2) 50,000 unit PO QWK 05/08/18 [Vitamin D2] Insulin Lispro Mix 75/25 [HumaLOG 35 unit SC QPM 05/08/18 Mix 75/25] Insulin Lispro Mix 75/25 [HumaLOG 50 unit SC DAILY 05/08/18 Mix 75/25] QUEtiapine [SEROquel] 12.5 mg PO BID 05/08/18 QUEtiapine [SEROquel] 200 mg PO HS 05/08/18 RX: Aspirin [Ecotrin] 81 mg PO DAILY 05/08/18 RX: Gabapentin [Neurontin] 300 mg PO Q8 05/08/18 RX: Losartan [Cozaar] 25 mg PO DAILY 05/08/18 RX: MetFORMIN [glucoPHAGE] 1,000 mg PO BID 05/08/18 Rosuvastatin Calcium [Crestor] 10 mg PO HS 05/08/18 Tiotropium Br/Olodaterol HCl 2 puff IH DAILY 05/08/18 [Stiolto Respimat Inhal [place]] - Allergies Allergies/Adverse Reactions: Allergies Allergy/AdvReac Type Severity Reaction Status Date / Time No Known Allergies Allergy Verified 02/17/17 11:20 Review of Systems Review Of Systems: ROS cannot be obtained secondary to pt's inabilty to answer questions. Physical Exam - Reviewed Nursing Documentation Reviewed: Yes Vital Signs Reviewed: Yes - Physical Exam Appears: Positive for: No Acute Distress Head Exam: Positive for: ATRAUMATIC, NORMOCEPHALIC Skin: Positive for: Normal Color, Warm, Dry Eye Exam: Positive for: Normal appearance, EOMI, PERRL Neck: Positive for: Normal, Painless ROM, Supple Cardiovascular/Chest: Positive for: Regular Rate, Rhythm. Negative for: Murmur Respiratory: Positive for: Normal Breath Sounds. Negative for: Respiratory Distress Gastrointestinal/Abdominal: Positive for: Normal Exam, Soft. Negative for: Tenderness Back: Positive for: Normal Inspection. Negative for: L CVA Tenderness, R CVA Tenderness Extremity: Positive for: Normal ROM. Negative for: Pedal Edema, Deformity Neurologic/Psych: Positive for: Alert, Oriented (x3), Mood/Affect (labile affect), Other (Slurred speech) - Laboratory Results Result Diagrams: 05/08/18 06:30 05/08/18 06:30 - ECG O2 Sat by Pulse Oximetry: 99 (RA) Pulse Ox Interpretation: Normal Medical Decision Making Medical Decision Making: Time: 622 Initial Impression: 62 y/o male with history of bipolar disorder and schizophrenia brought in with suicidal declaration and alcohol abuse. Initial Plan: --EKG --Alcohol serum --[employer] --Drug screen --Crisis evaluation --Urine dipstick --CBC --Urinalysis --1:1 [address]ation [address] Merchant, pending crisis evaluation, sobriety and reevaluation. Scribe Attestation: Documented by Stephanie Figueroa, acting as a scribe for Adalberto Keys MD. Provider Scribe Attestation: All medical record entries made by the Scribe were at my direction and personally dictated by me. I have reviewed the chart and agree that the record accurately reflects my personal performance of the history, physical exam, medical decision making, and the department course for this patient. I have also personally directed, reviewed, and agree with the discharge instructions and disposition. Disposition - Clinical Impression Clinical Impression: Alcohol abuse with intoxication - Patient ED Disposition Is Patient to be Admitted: Transfer of Care - Disposition Disposition: Transfer of Care Disposition Time: 07:00 Condition: FAIR Patient Signed Over To: Maggie Merchant
[2018-05-08 06:47] LABS: BASO # 0.1 K/uL (0.0-0.2); BASO % 0.7 % (0.0-2.0); EOS # 0.1 K/uL (0.0-0.7); EOS % 1.4 % (0.0-4.0); HEMOGLOBIN 13.5 g/dL (12.0-18.0); LYMPH # 3.2 K/uL (1.0-4.3); MEAN CELL VOLUME 88.7 fl (80.0-94.0); MEAN CORPUSCULAR HEMOGLOBIN 29.4 pg (27.0-31.0); MEAN CORPUSCULAR HGB CONC 33.2 g/dL (33.0-37.0); MEAN PLATELET VOLUME 7.2 fl (7.2-11.7); MONO # 0.7 K/uL (0.0-0.8); MONO % 8.9 % (0.0-10.0); NEUT # 3.9 K/uL (1.8-7.0); NRBC % 0.2 % (0.0-0.0); RBC 4.6 Mil/uL (4.40-5.90); RED CELL DISTRIBUTION WIDTH 14.9 % (11.5-14.5)
[2018-05-08 06:53] LABS: ALB/GLOB RATIO 1.2 (1.0-2.1); ALBUMIN 4.1 g/dL (3.5-5.0); ALT/SGPT 17 U/L (21-72); AST/SGOT 21 U/L (17-59); BLOOD UREA NITROGEN 13 mg/dl (9-20); CALCIUM 8.7 mg/dL (8.4-10.2); GFR NON-AFRICAN AMERICAN > 60
[2018-05-08 09:17] LABS: URINE BILIRUBIN NEGATIVE (NEGATIVE); URINE BLOOD MODERATE (NEGATIVE); URINE CLARITY CLEAR (Clear); URINE COLOR STRAW (YELLOW); URINE GLUCOSE (UA) >=500 mg/dL (NEGATIVE); URINE LEUKOCYTE ESTERASE NEG Leu/uL (Negative); URINE PROTEIN NEGATIVE (NEGATIVE); URINE UROBILINOGEN 0.2-1.0 mg/dL (0.2-1.0)
[2018-05-08] MEDS ORDERED: Sodium Chloride 0.9% 1,000 ML IV STA (09:33)
[2018-05-08 09:52] LABS: BARBITURATES, UR NEGATIVE (NEGATIVE); BENZODIAZEPINES, UR NEGATIVE (NEGATIVE); OPIATES, UR NEGATIVE (NEGATIVE); PHENCYCLIDINE, UR NEGATIVE (NEGATIVE)
[2018-05-08] MEDS ORDERED: Insulin Regular 100 units/ml IV STA (12:17)
[2018-05-08] MEDS ORDERED: Magnesium Hydroxide Susp 30 ml UD PO PRN (15:08)
[2018-05-08] MEDS ORDERED: Alum-Mag Hydrox-Simethicone Susp (30 mL) PO PRN (15:08)
[2018-05-08] MEDS ORDERED: DiphenhydrAMINE 50 mg/ml Inj IM PRN (15:08)
--- NOTE | 2018-05-08 15:30 | PCM.PSYCH ---
Initial Psychiatric Evaluation - Initial Psychiatric Evaluation Type of Admission: Voluntary Legal Status: Capacity Chief Complaint (in patient's own words): I need help with drinking History of Present Illness and Precipitating Events: pt is a 64 ys old male with previous psychiatric diagnosis of schizoaffective disorder and alcohol dependence referred to ED after making suicidal statements, stating he wants to attempt to fall down the stairs to end his life, pt reported he is in treatment at the [facility] and [facility], partially compliant with treatment at least for past month relapsed on alcohol using about a pint every day , patient stated he has been depressed for a long time since his divorce, has one previous suicidal attempt by trying to hang himself, reported recently has been increasingly depressed due to being lonely with poor social support, poor seleep poor appetite, hopeless and helpless, pt started experiencing suicidal ideation on the unit he denied active suicidal plan or intent denied command hallucinations, blood alcohol level in ER 278 collateral information spoke w/ the patients daughter, Lary Wang, for collateral information. As per Lary, the patient has been drinking for years. Pt has been depressed ever since his divorce years ago. Last night, the patient was drinking 1 liter of vodka, and 1 pint of rum. The patient then stated that she couldnt breathe, which then made Lary bring her father to the hospital. Lary has not seen her father in 18 years, and has only been w/ him for a week. The patient lives alone, and has no family support in the [place]. The patient has been in several rehabs, and several detox treatment, but would leave against medical advice, or would never follow up w/ any outpatient treatment. The patient has a diagnosis of Schizophrenia, and Bipolar D/O. As per Lary, no one wants to deal w/ her father due to his drinking problem. The patient becomes aggressive when you take away his drink, or recommend any treatment programs. Yesterday, while he was intoxicated, he was bringing up being suicidal, and thoughts of hurting himself. A few years ago, the patient attempted suicide by taking a rope, and trying to hang himself. The patient has not been sleeping or eating. The patient doesnt acknowledge his drinking problem. As per Lary, Alcohol runs in the family. Lary stated that her father has not been compliant w/ his medication due to his alcohol use. Current Medications: Active Medications Generic Name Dose Route Start Last Admin Trade Name Freq PRN Reason Stop Dose Admin Acetaminophen 650 mg 05/08/18 15:08 Tylenol 325mg Tab PO Q4 PRN Pain, moderate (4-7) Al Hydrox/Mg Hydrox/Simethicone 30 ml 05/08/18 15:08 Maalox Plus 30 Ml PO Q4 PRN Dyspepsia Chlordiazepoxide 10 mg 05/08/18 16:00 Librium PO Q6 ALEXIS Diphenhydramine HCl 50 mg 05/08/18 15:08 Benadryl IM Q6 PRN Extrapyramidal S/S Unable PO Diphenhydramine HCl 50 mg 05/08/18 15:08 Benadryl PO Q6 PRN Extrapyramidal Symptoms Folic Acid 1 mg 05/09/18 09:00 Folic Acid PO DAILY ALEXIS Gabapentin 100 mg 05/08/18 17:00 Neurontin PO TID ALEXIS Haloperidol 5 mg 05/08/18 15:08 Haldol PO Q4 PRN Agitation Haloperidol Lactate 5 mg 05/08/18 15:08 Haldol IM Q4 PRN Agitation, Unable to Take PO Lorazepam 2 mg 05/08/18 15:08 Ativan IM Q4 PRN Anxiety/Agitation,Unable PO Lorazepam 2 mg 05/08/18 15:08 Ativan PO Q4 PRN Anxiety/Agitation Magnesium Hydroxide 30 ml 05/08/18 15:08 Milk Of Magnesia PO HS PRN Constipation Multivitamins/Minerals 1 tab 05/09/18 09:00 Therapeutic-M Tab PO DAILY [facility] Quetiapine Fumarate 200 mg 05/08/18 22:00 Seroquel PO HS ALEXIS Thiamine HCl 100 mg 05/09/18 09:00 Vitamin B1 Tab PO DAILY [facility] Past Psychiatric History - Past Psychiatric History Explanation of prior treatment: one hospitalization [place] [facility] multiple inpatient rehabs, pt signed AMA History of ETOH/Drug Use: ALCOHOL USE History of Family Illness: POSITIVE FAMILY HISTORY OF ALCOHOL USE Pertinent Medical Hx (Current Medical&Sleep Prob, Allergies): Allergies Allergy/AdvReac Type Severity Reaction Status Date / Time No Known Allergies Allergy Verified 02/17/17 11:20 Albuterol Sulfate [Proair Hfa] 2 puff IH Q4 PRN 05/08/18 Aspirin [Ecotrin] 81 mg PO DAILY 05/08/18 Clopidogrel [Plavix] 75 mg PO DAILY 05/08/18 Ergocalciferol (Vitamin D2) [Vitamin D2] 50,000 unit PO QWK 05/08/18 Gabapentin [Neurontin] 300 mg PO Q8 05/08/18 Insulin Lispro Mix 75/25 [HumaLOG Mix 75/25] 35 unit SC QPM 05/08/18 Insulin Lispro Mix 75/25 [HumaLOG Mix 75/25] 50 unit SC DAILY 05/08/18 Losartan [Cozaar] 25 mg PO DAILY 05/08/18 MetFORMIN [glucoPHAGE] 1,000 mg PO BID 05/08/18 QUEtiapine [SEROquel] 12.5 mg PO BID 05/08/18 QUEtiapine [SEROquel] 200 mg PO HS 05/08/18 Rosuvastatin Calcium [Crestor] 10 mg PO HS 05/08/18 Tiotropium Br/Olodaterol HCl [Stiolto Respimat Inhal [place]] 2 puff IH DAILY 05/08/18 Mental Status Examination - Personal Presentation Personal Presentation: Looks older than stated age - Affect Affect: Constricted, Depressed - Motor Activity Motor Activity: Psychomotor Retardation - Reliability in Providing Information Reliability in Providing Information: Fair - Speech Speech: Relevant - Mood Mood: Depressed, Anxious - Formal Thought Process Formal Thought Process: Circumstantial - Obsessions/Compulsions Obsessions: No Compulsions: No - Cognitive Functions Orientation: Person, Place Attention/Concentration: Easily distracted Abstract Thinking: Runnells Judgement: Imparied, as evidence by: Poor judgement, Imparied, as evidence by: Lack of insight into illness - Risk Risk: Suicidal, Seizure, Withdrawal, Diminished functioning - Strength & Assets Inventory Strength & Assets Inventory: Life experience - Limitations Additional comments: POOR COMPLIANCE DSM 5 DX - DSM 5 DSM 5 Diagnosis: alcohol induced mood disorder with depressive features alcohol dependence hx of schizoaffective disorder depressed - Recommended/Plan of Treatment Treatment Recommendations and Plan of Treatment: pt will be started on librium protocol , will be monitored for symptoms and signs of alcohol withdrawal start seroquel 200mg qhs for depression and mood stabilization neurontin 100mg tid for anxiety motivational group and supportive therapy possible referral to inpatient rehab internal medicine consult for diabetes
--- NOTE | 2018-05-08 16:13 | PCM.BM ---
<Agnes Ann - Last Filed: 05/08/18 16:20> Treatment Plan Problems - Problems identified on initial assessmt Feelings of worthlessness Date Initiated: 05/08/18 Time Initiated: 16:21 Assessment reference: NA Status: Active Treatment assets and liabiliti Patient Assests: cooperative, self-reliant, ADL independent, good support system, negotiates basic needs, cognitively intact Patient Liabilities: financial problems, relationship conflicts, dietary restrictions, substance abuse, medical problems - Milieu Protocol Maintain good personal hygiene: daily Encourage regular showers, every shift Remind patient to perform daily oral care, every shift Assist patient to perform ADL's Conduct patient checks and document Observation sheet: Q15 minutes Maintain personal safety: every shift Educate patient to report safety concerns to staff, every shift Monitor environment for contraband/sharps Medication safety: Monitor for expected outcome, potential side effects: every shift, Assess barriers to learning: every shift, Assess readiness for medication education: every shift Milieu Narrative: pt will be started on librium protocol , will be monitored for symptoms and signs of alcohol withdrawal start seroquel 200mg qhs for depression and mood stabilization neurontin 100mg tid for anxiety motivational group and supportive therapy possible referral to inpatient rehab internal medicine consult for diabetes Discharge/Continuing Care - Treatment Team Participation Patient/Family/SO Statement: pt will be started on librium protocol , will be monitored for symptoms and signs of alcohol withdrawal start seroquel 200mg qhs for depression and mood stabilization neurontin 100mg tid for anxiety motivational group and supportive therapy possible referral to inpatient rehab internal medicine consult for diabetes <Henry Flor - Last Filed: 05/10/18 16:25> Family Contact Family involvement: Family/SO is involved Family contact: Patient agrees to contact, Family has been contacted by patient Family contact name: Lary Wang - Daughter ([phone]) Family contacted how many times per week?: 2 - Goals for Treatment Patient goals for treatment: Pt offered no goals for treatment as he reported he feels "great." Discharge/Continuing Care - Education Needs Education Needs: Patient Medication, Patient Diagnosis/Disease Process, Patient Coping Skills, Patient Community resources, Patient Aftercare Safety Plan - Discharge Discharge Criteria: Tolerates medication w/o severe side effects, Free of Suicidal thoughts, Normal sleep pattern, Reduction of target symptoms Discharge to:: Home, With Family <Cris Gonzalez - Last Filed: 05/11/18 15:31> Family Contact Family contact comment: Automotive Service Director placed call to pts daughter Lary Wang ) to discuss pts progress on 3NP, collect further collateral and request that pt. be brought his eyeglasses/clean clothing, as requested by pt. Automotive Service Director left brief message on unidentified voicemail. Automotive Service Director awaiting response. Discharge/Continuing Care - Treatment Team Participation Patient/Family/SO Statement: 05/11/18 15:31 Pt. attended tx team this morning to discuss progress on 3NP and tx goals. Pt. reported significant improvement in sxs of depression and withdrawal since admission. Pt. denied SI/HI and was able to contract for safety. Pt. visible on 3NP and observed socializing appropriately with select peers. No harmful bxs noted. Pt. discharge focused, requesting to be discharged today. Tx team provided psychoeducation regarding risks of being discharged prior to completing withdrawal protocol. Risks of ongoing substance abuse and benefits of maintained sobriety discussed at length. Importance of adherence with outpatient mental health services discussed. Pt. superficially motivated for tx. 48 hour notice, screening process and possible involuntary commitment discussed. Pt. declined. Importance of proper stabilization prior to discharge to ensure safety/functioning in the community discussed. Discussed with Family/SO: No Was Patient/Family/SO present at Treatment Team Meeting: Yes <Bree Lozada - Last Filed: 05/12/18 12:11> - Diagnosis (1) Alcohol abuse with intoxication Status: Acute Interventions: 05/12/18 12:11 motivational therapy
[2018-05-08] MEDS ORDERED: Ergocalciferol 50,000 Intl Units Cap PO SCH (18:00)
--- NOTE | 2018-05-08 18:01 | CARD ---
APPROVED REPORT Date of service: 05/08/2018 EKG Measurement Heart [id number] <Conclusion> Normal sinus rhythm Normal ECG
--- NOTE | 2018-05-08 18:19 | CP.PCM.CON ---
History of Present Illness - History of Present Illness History of Present Illness: 64 yo male with history of COPD, DM2, ETOH abuse and schizoaffective DO admitted to psyche unit because of depression and suicidal ideation. Review of Systems - Review of Systems All systems: reviewed and no additional remarkable complaints except (aside from those mentioned above, 12 point system review were negative by me) Past Patient History - Tetanus Immunizations Tetanus Immunization: Unknown - Past Medical History & Family History Past Medical History?: Yes - Past Social History Alcohol: > 2 Drinks/Day Drugs: Denies - CARDIAC Hx Cardiac Disorders: No - PULMONARY Hx Respiratory Disorders: No Hx Tuberculosis: No - NEUROLOGICAL Hx Neurological Disorder: No HX Cerebrovascular Accident: No Hx Seizures: No - HEENT Hx HEENT Problems: No - RENAL Hx Chronic Kidney Disease: No Hx Kidney Stones: No - ENDOCRINE/METABOLIC Hx Diabetes Mellitus Type 2: Yes Hx Hyperthyroidism: No Hx Hypothyroidism: No - HEMATOLOGICAL/ONCOLOGICAL Hx Blood Disorders: No Hx Cancer: No Hx Human Immunodeficiency Virus (HIV): No - INTEGUMENTARY Hx Dermatological Problems: No - MUSCULOSKELETAL/RHEUMATOLOGICAL Hx Arthritis: No Hx Fractures: Yes Hx Osteoporosis: No Hx Rheumatoid Arthritis: No - GASTROINTESTINAL Hx Gastrointestinal Disorders: No Hx Crohn's Disease: No Hx Diverticulitis: No Hx Gall Bladder Disease: No Hx Gastritis: No Hx Pancreatitis: No - GENITOURINARY/GYNECOLOGICAL Hx Genitourinary Disorders: No Hx Sexually Transmitted Disorders: No - PSYCHIATRIC Hx Depression: Yes Hx Substance Use: Yes (Alcoholism) - SURGICAL HISTORY Hx Appendectomy: No Hx Carotid Endarterectomy: No Hx Cholecystectomy: No Hx Coronary Artery Bypass Graft: No Hx Coronary Stent: No Hx Tonsillectomy: No Other/Comment: pt said that he had sutures in his right leg - ANESTHESIA Hx Anesthesia: No Hx Anesthesia Reactions: No Hx Malignant Hyperthermia: No Meds Allergies/Adverse Reactions: Allergies Allergy/AdvReac Type Severity Reaction Status Date / Time No Known Allergies Allergy Verified 02/17/17 11:20 - Medications Medications: Current Medications Acetaminophen (Tylenol 325mg Tab) 650 mg PO Q4 PRN PRN Reason: Pain, moderate (4-7) Al Hydrox/Mg Hydrox/Simethicone (Maalox Plus 30 Ml) 30 ml PO Q4 PRN PRN Reason: Dyspepsia Aspirin (Ecotrin) 81 mg PO DAILY [facility] Chlordiazepoxide (Librium) 10 mg PO Q6 [facility] Last Admin: 12/21/18 17:37 Dose: 10 mg Clopidogrel Bisulfate (Plavix) 75 mg PO DAILY [facility] Diphenhydramine HCl (Benadryl) 50 mg IM Q6 PRN PRN Reason: Extrapyramidal S/S Unable PO Diphenhydramine HCl (Benadryl) 50 mg PO Q6 PRN PRN Reason: Extrapyramidal Symptoms Ergocalciferol (Drisdol 50,000 Intl Units Cap) cap PO QWK [facility] Folic Acid (Folic Acid) 1 mg PO DAILY [facility] Gabapentin (Neurontin) 100 mg PO TID [facility] Last Admin: 05/08/18 17:39 Dose: 100 mg Gabapentin (Neurontin) 300 mg PO Q8 [facility] Haloperidol (Haldol) 5 mg PO Q4 PRN PRN Reason: Agitation Haloperidol Lactate (Haldol) 5 mg IM Q4 PRN PRN Reason: Agitation, Unable to Take PO Home Med (Albuterol Sulfate) 2 puff IH Q4 PRN PRN Reason: Shortness of Breath Insulin Lispro Protam/Lispro Human (Humalog Mix 75/25) 35 units SC QPM [facility] Insulin Lispro Protam/Lispro Human (Humalog Mix 75/25) 50 units SC DAILY [facility] Lorazepam (Ativan) 2 mg IM Q4 PRN PRN Reason: Anxiety/Agitation,Unable PO Lorazepam (Ativan) 2 mg PO Q4 PRN PRN Reason: Anxiety/Agitation Losartan Potassium (Cozaar) 25 mg PO DAILY [facility] Magnesium Hydroxide (Milk Of Magnesia) 30 ml PO HS PRN PRN Reason: Constipation Metformin HCl (Glucophage) 1,000 mg PO BID [facility] Multivitamins/Minerals (Therapeutic-M Tab) 1 tab PO DAILY [facility] Quetiapine Fumarate (Seroquel) 200 mg PO HS [facility] Thiamine HCl (Vitamin B1 Tab) 100 mg PO DAILY [facility] Physical Exam - Constitutional Appears: No Acute Distress - Head Exam Head Exam: ATRAUMATIC - Eye Exam Eye Exam: absent: Scleral icterus - ENT Exam ENT Exam: Mucous Membranes Moist - Neck Exam Neck exam: Negative for: Meningismus - Respiratory Exam Respiratory Exam: absent: Rales, Rhonchi, Wheezes, Respiratory Distress - Cardiovascular Exam Cardiovascular Exam: REGULAR RHYTHM, +S1, +S2 - GI/Abdominal Exam GI & Abdominal Exam: Soft. absent: Tenderness - Rectal Exam Rectal Exam: Deferred - Neurological Exam Neurological exam: Alert, Oriented x3 - Psychiatric Exam Psychiatric exam: Normal Affect - Skin Skin Exam: Dry, Intact Results - Vital Signs Recent Vital Signs: Last Vital Signs Temp 96.9 F L 05/08/18 16:22 Pulse 105 H 05/08/18 16:22 Resp 20 05/08/18 16:22 BP 134/77 05/08/18 16:22 Pulse Ox 98 05/08/18 14:31 - Labs Result Diagrams: 05/08/18 06:30 05/08/18 06:30 Labs: Laboratory Results - last 24 hr 05/08/18 05/08/18 05/08/18 06:30 06:30 09:00 WBC 8.0 RBC 4.60 Hgb 13.5 Hct 40.8 MCV 88.7 D MCH 29.4 MCHC 33.2 RDW 14.9 H Plt Count 207 MPV 7.2 Neut % (Auto) 49.0 L Lymph % (Auto) 40.0 Moffat % (Auto) 8.9 Eos % (Auto) 1.4 Baso % (Auto) 0.7 Neut # (Auto) 3.9 Lymph # (Auto) 3.2 Moffat # (Auto) 0.7 Eos # (Auto) 0.1 Baso # (Auto) 0.1 Sodium 143 Potassium 3.7 Chloride 104 Carbon Dioxide 24 Anion Gap 19 BUN 13 Creatinine 0.9 Est GFR ( Amer) > 60 Est GFR (Non-Af Amer) > 60 POC Glucose (mg/dL) Random Glucose 328 H Calcium 8.7 Total Bilirubin 0.2 AST 21 ALT 17 L D Alkaline Phosphatase 61 Total Protein 7.4 Albumin 4.1 Globulin 3.4 Albumin/Globulin Ratio 1.2 Urine Color Urine Clarity Urine pH Ur Specific [place] Urine Protein Urine Glucose (UA) Urine Ketones Urine Blood Urine Nitrate Urine Bilirubin Urine Urobilinogen Ur Leukocyte Esterase Urine RBC (Auto) Urine Microscopic WBC Urine Opiates Screen Negative Urine Methadone Screen Negative Ur Barbiturates Screen Negative Ur Phencyclidine Scrn Negative Ur Amphetamines Screen Negative U Benzodiazepines Scrn Negative U Oth Cocaine Metabols Negative U Cannabinoids Screen Negative Alcohol, Quantitative 287 H 05/08/18 05/08/18 05/08/18 09:00 09:14 11:53 WBC RBC Hgb Hct MCV MCH MCHC RDW Plt Count MPV Neut % (Auto) Lymph % (Auto) [place] % (Auto) Eos % (Auto) Baso % (Auto) Neut # (Auto) Lymph # (Auto) [place] # (Auto) Eos # (Auto) Baso # (Auto) Sodium Potassium Chloride Carbon Dioxide Anion Gap BUN Creatinine Est GFR ( Amer) Est GFR (Non-Af Amer) POC Glucose (mg/dL) 268 H 280 H Random Glucose Calcium Total Bilirubin AST ALT Alkaline Phosphatase Total Protein Albumin Globulin Albumin/Globulin Ratio Urine Color Straw Urine Clarity Clear Urine pH 6.0 Ur Specific [place] 1.014 Urine Protein Negative Urine Glucose (UA) >=500 Urine Ketones Negative Urine Blood Moderate Urine Nitrate Negative Urine Bilirubin Negative Urine Urobilinogen 0.2-1.0 Ur Leukocyte Esterase Neg Urine RBC (Auto) 3 Urine Microscopic WBC 1 Urine Opiates Screen Urine Methadone Screen Ur Barbiturates Screen Ur Phencyclidine Scrn Ur Amphetamines Screen U Benzodiazepines Scrn U Oth Cocaine Metabols U Cannabinoids Screen Alcohol, Quantitative 05/08/18 13:38 WBC RBC Hgb Hct MCV MCH MCHC RDW Plt Count MPV Neut % (Auto) Lymph % (Auto) [place] % (Auto) Eos % (Auto) Baso % (Auto) Neut # (Auto) Lymph # (Auto) [place] # (Auto) Eos # (Auto) Baso # (Auto) Sodium Potassium Chloride Carbon Dioxide Anion Gap BUN Creatinine Est GFR ( Amer) Est GFR (Non-Af Amer) POC Glucose (mg/dL) 271 H Random Glucose Calcium Total Bilirubin AST ALT Alkaline Phosphatase Total Protein Albumin Globulin Albumin/Globulin Ratio Urine Color Urine Clarity Urine pH Ur Specific [place] Urine Protein Urine Glucose (UA) Urine Ketones Urine Blood Urine Nitrate Urine Bilirubin Urine Urobilinogen Ur Leukocyte Esterase Urine RBC (Auto) Urine Microscopic WBC Urine Opiates Screen Urine Methadone Screen Ur Barbiturates Screen Ur Phencyclidine Scrn Ur Amphetamines Screen U Benzodiazepines Scrn U Oth Cocaine Metabols U Cannabinoids Screen Alcohol, Quantitative Assessment & Plan (1) Depression Status: Acute Comment: psyche is managing (2) Suicidal ideation Status: Acute (3) Alcohol abuse Status: Chronic Comment: watch for withdrawal (4) COPD (chronic obstructive pulmonary disease) Status: Chronic Comment: asymptomatic. continue Albuiterol inhaler 2 puffs q 4hrs as needed. Advair 1 puff q 12hrs (5) DM2 (diabetes mellitus, type 2) Status: Chronic Comment: BS uncontrolled. continue Lispro mix 75/25 SC q AM and PM. Metformin 1000mg PO BID
[2018-05-08] MEDS: Insulin Lispro Mix 75/25 100 units/ml (HumaLog) 10ml SC SCH (19:10)
[2018-05-09] MEDS: Multivitamin With Minerals Tab PO SCH (08:59)
[2018-05-09] MEDS: Insulin Lispro Mix 75/25 100 units/ml (HumaLog) 10ml SC SCH ×2 (09:14→17:04)
[2018-05-09 09:58] LABS: T4 6.45 ug/dl (5.5-11.0)
--- NOTE | 2018-05-09 10:36 | PCM.PYCHPN ---
Psychiatric Progress Note - Psychiatric Progress Note Patient seen today, length of contact: Pt evaluated, chart reviewed Patient Chief Complaint: Depression Problems Identified/Issues Discussed: Patient continues to report feeling depressed w/ feelings of hopelessness, but denies acute suicidal ideation or self injurious ideation. He denies acute alcohol withdrawal symptoms. Psychoeducation provided on the dangers of ETOH abuse. NO AH/VH/paranoia. Medication Change: No Medical Record Reviewed: Yes Consults ordered or reviewed: Medicine consult Mental Status Examination - Cognitive Function Orientation: Person, Place, Situation, Time Memory: Intact Association: WNL Fund of Knowledge: [facility] Decription of patient's judgement and insights: Poor I/J - Mood Mood: Depressed, Anxious - Affect Affect: Constricted, Depressed - Formal Thought Process Formal Thought Process: Circumstantial Psychotic Thoughts and Behaviors: Denies AH/VH/paranoia/delusions - Suicidal Ideation Suicidal Ideation: No - Homicidal Ideation Homicidal Ideation: No Goal/Treatment Plan - Goal/Treatment Plan Need for Continued Stay: Remain at risks for inpatient hospitalization, Severe depression anxiety Progress Toward Problem(s) and Goals/Treatment Plan: Alcohol Induced Mood Disorder; Alcohol Use Disorder -Continue Librium, will taper gradually -Continue Seroquel -Individual and group therapy -Psychoeducation -Disposition planning -Medicine consult
[2018-05-09] MEDS: Albuterol HFA 90 mcg/actuation (8 g) IH PRN ×2 (12:57→17:04)
[2018-05-10] MEDS: Albuterol HFA 90 mcg/actuation (8 g) IH PRN ×3 (03:10→19:50)
[2018-05-10] MEDS: Multivitamin With Minerals Tab PO SCH (08:51)
[2018-05-10] MEDS: Insulin Lispro Mix 75/25 100 units/ml (HumaLog) 10ml SC SCH ×2 (08:52→17:34)
--- NOTE | 2018-05-10 08:52 | PCM.PYCHPN ---
Psychiatric Progress Note - Psychiatric Progress Note Patient seen today, length of contact: Pt evaluated, chart reviewed Patient Chief Complaint: Depression Problems Identified/Issues Discussed: Patient continues to report feeling depressed w/ periods of irritability and anxiety. She denies acute AH/VH/SI/HI. He denies acute alcohol withdrawal symptoms. Psychoeducation provided on the dangers of ETOH abuse. Medication Change: Yes (Taper Librium, Increase Seroquel) Medical Record Reviewed: Yes Consults ordered or reviewed: Medicine consult Mental Status Examination - Cognitive Function Orientation: Person, Place, Situation, Time Memory: Intact Association: WNL Fund of Knowledge: [facility] Decription of patient's judgement and insights: Poor I/J - Mood Mood: Depressed, Anxious - Affect Affect: Constricted, Depressed - Speech Speech: Appropriate - Formal Thought Process Formal Thought Process: Circumstantial Psychotic Thoughts and Behaviors: Denies AH/VH/paranoia/delusions - Suicidal Ideation Suicidal Ideation: No - Homicidal Ideation Homicidal Ideation: No Goal/Treatment Plan - Goal/Treatment Plan Need for Continued Stay: Remain at risks for inpatient hospitalization, Severe depression anxiety Progress Toward Problem(s) and Goals/Treatment Plan: Alcohol Induced Mood Disorder; Alcohol Use Disorder; History of Schizoaffective Disorder -Taper Librium -Increase Seroquel -Individual and group therapy -Psychoeducation -Disposition planning -Medicine consult
[2018-05-10] MEDS ORDERED: guaiFENesin DM 200 mg-20 mg/10 ml UD PO PRN (16:30)
--- NOTE | 2018-05-10 17:48 | RAD ---
Date of service: 05/10/2018 HISTORY: Cough. COMPARISON: Comparison chest 05/27/2017 TECHNIQUE: Chest PA and lateral FINDINGS: LUNGS: Poor inspiration with low lung volumes, crowded bronchovascular markings and mild bibasilar atelectasis. PLEURA: No significant pleural effusion identified. No pneumothorax apparent. CARDIOVASCULAR: No aortic atherosclerotic calcification present. Normal cardiac size. No pulmonary vascular congestion. OSSEOUS STRUCTURES: No significant abnormalities. VISUALIZED UPPER ABDOMEN: Normal. OTHER FINDINGS: None. IMPRESSION: Poor inspiration with low lung volumes, crowded bronchovascular markings and mild bibasilar atelectasis.
[2018-05-10 20:02] VITALS: O2SAT 98
[2018-05-11] MEDS: Insulin Lispro Mix 75/25 100 units/ml (HumaLog) 10ml SC SCH ×2 (08:31→17:25)
[2018-05-11] MEDS: Multivitamin With Minerals Tab PO SCH (08:32)
--- NOTE | 2018-05-11 14:34 | PCM.PYCHPN ---
Psychiatric Progress Note - Psychiatric Progress Note Patient seen today, length of contact: Pt evaluated, chart reviewed Patient Chief Complaint: I need to stop drinking Problems Identified/Issues Discussed: pt evaluated with treatment team, reported feeling less depressed with seroquel, no reported side effects pt continues to be on librium protocol with gradual tapering motivational therapy provided discussed with patient effect of alcohol use on current mental status pt denied any current thoughts of self harm, denied perceptual disturbances Medical Problems: [place] [facility] [place] inpatient rehabs, pt signed AMA DSM 5 Symptoms Update: alcohol dependence schizoaffective disorder bipolar Medication Change: Yes (Taper Librium, ) Medical Record Reviewed: Yes Mental Status Examination - Cognitive Function Orientation: Person, Place, Situation, Time Memory: Intact Association: WNL Fund of Knowledge: WNL - Mood Mood: Depressed, Anxious - Affect Affect: Constricted, Depressed - Speech Speech: Appropriate - Formal Thought Process Formal Thought Process: Circumstantial - Suicidal Ideation Suicidal Ideation: No - Homicidal Ideation Homicidal Ideation: No Goal/Treatment Plan - Goal/Treatment Plan Need for Continued Stay: Remain at risks for inpatient hospitalization, Severe depression anxiety Progress Toward Problem(s) and Goals/Treatment Plan: taper down librium protocol , will be monitored for symptoms and signs of alcohol withdrawal continue with seroquel 20 for depression and mood stabilization neurontin 300mg tid for anxiety motivational group and supportive therapy possible referral to inpatient rehab
[2018-05-12] MEDS: Multivitamin With Minerals Tab PO SCH (08:31)
[2018-05-12] MEDS: Insulin Lispro Mix 75/25 100 units/ml (HumaLog) 10ml SC SCH ×2 (08:39→17:20)
[2018-05-12] MEDS: Albuterol HFA 90 mcg/actuation (8 g) IH PRN (09:00)
--- NOTE | 2018-05-12 12:15 | PCM.PYCHPN ---
Psychiatric Progress Note - Psychiatric Progress Note Patient seen today, length of contact: Pt evaluated, chart reviewed Patient Chief Complaint: I feel better and I want to restart the outpatient program Problems Identified/Issues Discussed: pt evaluated , reported better mood, reported clearing off of the auditory hallucinations, motivational therapy provided, discussed effectof alcohol use on current mental and physical status, pt agreed to restart outpatient [facility] program pt denied any current thoughts of self harm, denied perceptual disturbances Medical Problems: one hospitalization at [facility] [place], multiple inpatient rehabs, pt signed AMA DSM 5 Symptoms Update: schizoaffective disorder alcohol abuse Medication Change: Yes (discontinue librium) Medical Record Reviewed: Yes Mental Status Examination - Cognitive Function Orientation: Person, Place, Situation, Time Memory: Intact Association: WNL Fund of Knowledge: WNL - Mood Mood: Depressed, Anxious - Affect Affect: Constricted, Depressed - Speech Speech: Appropriate - Formal Thought Process Formal Thought Process: Circumstantial - Suicidal Ideation Suicidal Ideation: No - Homicidal Ideation Homicidal Ideation: No Goal/Treatment Plan - Goal/Treatment Plan Need for Continued Stay: Remain at risks for inpatient hospitalization, Severe depression anxiety Progress Toward Problem(s) and Goals/Treatment Plan: discontinue librium protocol , will be monitored for symptoms and signs of alcohol withdrawal continue with seroquel 300mg qhs for depression and mood stabilization neurontin 300mg tid for anxiety motivational group and supportive therapy
[2018-05-12 18:17] VITALS: TEMP 98.1
[2018-05-13] MEDS: Multivitamin With Minerals Tab PO SCH (08:53)
[2018-05-13] MEDS: Insulin Lispro Mix 75/25 100 units/ml (HumaLog) 10ml SC SCH (08:54)
[2018-05-13 08:58] VITALS: BP 113/70; PULSE 89
[2018-05-13 09:40] VITALS: RESP 20
--- NOTE | 2018-05-13 11:09 | PCM.PYCHDC ---
Mental Status Examination - Mental Status Examination Orientation: Person, Place, Situation Memory: Intact Mood: Neutral Affect: Broad Speech: Appropriate Attention: WNL Concentration: WNL Association: WNL Fund of Knowledge: WNL Formal Thought Process: No Impairment Description of patient's judgement and insight: partial insight fair judgment Psychotic Thoughts and Behaviors: pt denied perceptual disturbances non elicited Suicidal Ideation: No Current Homicidal Ideation?: No Discharge Summary - Discharge Note Reason for Hospitalization: pt is a 64 ys old male with previous psychiatric diagnosis of schizoaffective disorder and alcohol dependence referred to ED after making suicidal statements, stating he wants to attempt to fall down the stairs to end his life, pt reported he is in treatment at the [facility] and [facility], partially compliant with treatment at least for past month relapsed on alcohol using about a pint every day , patient stated he has been depressed for a long time since his divorce, has one previous suicidal attempt by trying to hang himself, reported recently has been increasingly depressed due to being lonely with poor social support, poor seleep poor appetite, hopeless and helpless, pt started experiencing suicidal ideation on the unit he denied active suicidal plan or intent denied command hallucinations, blood alcohol level in ER [id number] Consultations:: List each consultation separately and include: 1. Reason for request. 2. Findings. 3. Follow-up Summary of Hospital Course include:: 1. Description of specific treatment plan utilized for patients during their course of treatmen. 2. Summarize the time- course for resolution of acute symptoms and/or regressed behaviors. 3. Describe issues identified and worked on during hospitalization. 4. Describe medication utilized. 5. Describe medical problems identified and treated. 6. Reassessment of suicide risk Summary of Hospital Course: pt on admission was started on librium protocol,monitored for symptoms and signs of alcohol withdrawal pt was started on seroquel for mood stabilizations and depression motivational therapy was provided in reference to effect of alcohol use pt was compliant with treatment attended groups, no repported side effects of medications on dischargept mental status was stable, denied any current suicidal or homicidal ideation denied perceptual disturbances follow up arranged by social work instructor at [facility] program - Diagnosis (1) Alcohol abuse with intoxication Current Visit: Yes Status: Acute - Final Diagnosis (DSM 5) Condition upon Discharge: FAIR DSM 5: schizoaffective disorder bipolar type alcohol use disorder Disposition: HOME/ ROUTINE Follow-up Treatment Plan: discontinue librium protocol , will be monitored for symptoms and signs of alcohol withdrawal continue with seroquel 300mg qhs for depression and mood stabilization neurontin 300mg tid for anxiety motivational group and supportive therapy Prescriptions/Medication Reconciliation: Gabapentin [Neurontin] 300 mg PO Q8 30 Days #90 cap QUEtiapine [SEROquel] 300 mg PO HS 30 Days #30 tab - Antipsychotic Medications Pt discharged on 2 or more routine antipsychotic medications: No
== END 2018-05-13 14:24 | disposition home or self-care (01) | DRG 895 ==
LOC: H.ER 05:56 → H.ERHOLD 12:57 → H.PSYCH 14:56
PROVIDERS: ADMIT Psychiatry & Neurology Psychiatry; ATTEND Psychiatry & Neurology Psychiatry
PROC: HZ52ZZZ Individual Psychotherapy for Substance Abuse Treatment, Cognitive-Behavioral (ICD-10-PCS; principal; 2018-05-08)
PROC: GZHZZZZ Group Psychotherapy (ICD-10-PCS; 2018-05-08)
PROC: GZ58ZZZ Individual Psychotherapy, Cognitive-Behavioral (ICD-10-PCS; 2018-05-08)
DX: F10.24 Alcohol dependence with alcohol-induced mood disorder (principal); R45.851 Suicidal ideations; F25.0 Schizoaffective disorder, bipolar type; F10.229 Alcohol dependence with intoxication, unspecified; Y90.8 Blood alcohol level of 240 mg/100 ml or more; E11.65 Type 2 diabetes mellitus with hyperglycemia; F41.9 Anxiety disorder, unspecified; I10 Essential (primary) hypertension; E78.00 Pure hypercholesterolemia, unspecified; E78.5 Hyperlipidemia, unspecified; J44.9 Chronic obstructive pulmonary disease, unspecified; F17.200 Nicotine dependence, unspecified, uncomplicated; Z91.14 Patient's other noncompliance with medication regimen; Z91.5 Personal history of self-harm; Z79.02 Long term (current) use of antithrombotics/antiplatelets; Z79.84 Long term (current) use of oral hypoglycemic drugs

== ENCOUNTER 2018-05-22 12:23 | Emergency (ER) | payer MEDICARE, OTHER ==
[2018-05-22 12:24] VITALS: BMI 30.7
[2018-05-22 12:30] VITALS: BP 111/73; TEMP 98.3
[2018-05-22 12:51] VITALS: RESP 18; O2SAT 97
[2018-05-22] MEDS ORDERED: Albuterol-Ipratrop 3 mg / 0.5 (3 ml) UD INH STA (13:13)
[2018-05-22 13:48] LABS: BASO # 0.1 K/uL (0.0-0.2); BASO % 0.9 % (0.0-2.0); EOS % 0.6 % (0.0-4.0); HEMOGLOBIN 13.8 g/dL (12.0-18.0); LYMPH # 2.6 K/uL (1.0-4.3); LYMPH % 35.7 % (20.0-40.0); MEAN CELL VOLUME 89.5 fl (80.0-94.0); MEAN CORPUSCULAR HEMOGLOBIN 29.6 pg (27.0-31.0); MEAN CORPUSCULAR HGB CONC 33.1 g/dL (33.0-37.0); MEAN PLATELET VOLUME 6.9 fl (7.2-11.7); MONO # 0.4 K/uL (0.0-0.8); MONO % 5.8 % (0.0-10.0); NEUT # 4.1 K/uL (1.8-7.0); NRBC % 0.1 % (0.0-0.0); RBC 4.66 Mil/uL (4.40-5.90); WHITE BLOOD COUNT 7.3 K/uL (4.8-10.8)
--- NOTE | 2018-05-22 14:01 | ED PDOC ---
HPI: SOB/CHF/COPD Time Seen by Provider: 05/22/18 12:58 Chief Complaint (Nursing): Shortness Of Breath Chief Complaint (Provider): Shortness of breath and chest pain History Per: Patient History/Exam Limitations: no limitations Onset/Duration Of Symptoms: Days (x2) Current Symptoms Are (Timing): Still Present Additional Complaint(s): 62 year old male, with a history of COPD and emphysema, presents to the ED with shortness of breath and chest pain since yesterday. Patient reports he has difficulty breathing and dry cough. Daughter states he was drinking yesterday. History is limited because of drinking history. Patient also has history of bipolar disorder and schizophrenia. According to daughter, patient has not been taking medications because he has been drinking alcohol every day. Patient also reports epigastric pain since yesterday. Denies vomiting or fever. PMD: Dr. Shade Ellis Past Medical History Reviewed: Historical Data, Nursing Documentation, Vital Signs Vital Signs: Last Vital Signs Temp 98.3 F 05/22/18 12:28 Pulse 107 H 05/22/18 12:28 Resp 18 05/22/18 12:43 BP 111/73 05/22/18 12:28 Pulse Ox 97 05/22/18 12:43 - Medical History PMH: Asthma, Bipolar Disorder, COPD, Diabetes, Emphysema, Fractures, HTN, Hypercholesterolemia, Hyperlipidemia, Schizophrenia Denies: Alzheimer's Disease, Anemia, Anxiety, Arthritis, Atrial Fibrillation, Bronchitis, CAD, Cardia Arrhythmia, CHF, Crohn's Disease, Dementia, Depression, Diverticulitis, Gastritis, Gall Bladder Disease, Hepatitis, HIV, Hyperthyroidism, Hypothyroidism, Kidney Stones, Migraine, Mitral Valve Prolapse, Multiple Sclerosis, Osteoporosis, Pancreatitis, Paranoia, Parkinson's Disease, Peripheral Edema, Pneumonia, Post Traumatic Stress Disorder, Pulmonary Embolism, Chronic Kidney Disease, Rheumatoid Arthritis, Seizures, Sickle Cell Disease, Sexually Transmitted Disease, Sleep Apnea, TIA - Surgical History Surgical History: No Surg Hx Denies: Appendectomy, CABG, Carotid Endarterectomy, Cholecystectomy, Coronary Stent, Pacemaker, Tonsillectomy - Family History Family History: States: Unknown Family Hx - Home Medications Home Medications: Ambulatory Orders Medication Instructions Recorded Aspirin [Ecotrin] 81 mg PO DAILY 05/08/18 Clopidogrel [Plavix] 75 mg PO DAILY 05/08/18 Ergocalciferol (Vitamin D2) 50,000 unit PO QWK 05/08/18 [Vitamin D2] Gabapentin [Neurontin] 300 mg PO Q8 05/08/18 Insulin Lispro Mix 75/25 [HumaLOG 35 unit SC QPM 05/08/18 Mix 75/25] Insulin Lispro Mix 75/25 [HumaLOG 50 unit SC DAILY 05/08/18 Mix 75/25] Losartan [Cozaar] 25 mg PO DAILY 05/08/18 MetFORMIN [glucoPHAGE] 1,000 mg PO BID 05/08/18 Rosuvastatin Calcium [Crestor] 10 mg PO HS 05/08/18 Tiotropium Br/Olodaterol HCl 2 puff IH DAILY 05/08/18 [Stiolto Respimat Inhal [place]] Gabapentin [Neurontin] 300 mg PO Q8 30 Days #90 cap 05/13/18 QUEtiapine [SEROquel] 300 mg PO HS 30 Days #30 tab 05/13/18 Thiamine [Vitamin B1 Tab] 100 mg PO DAILY tab 05/13/18 guaiFENesin/Dextromethorphan 10 ml PO Q6 PRN udc 05/13/18 [Robitussin DM] Albuterol Sulfate [Proair Hfa] 2 puff IH Q4 PRN #1 inh 05/22/18 - Allergies Allergies/Adverse Reactions: Allergies Allergy/AdvReac Type Severity Reaction Status Date / Time No Known Allergies Allergy Verified 05/22/18 12:28 Wells Criteria for PE - Wells Criteria for Pulmonary Embolism Clinical Signs and Symptoms of DVT: No P.E is #1 Diagnosis, or Equally Likely: No Heart Rate >100: No Immobilization at least 3 days;Surgery previous 4 weeks: No Previous, objectively diagnosed PE or DVT: No Hemoptysis: No Malignancy w/treatment within 6 months, or palliative: No Total Score: 0 Review of Systems ROS Statement: Except As Marked, All Systems Reviewed And Found Negative Constitutional: Negative for: Fever Cardiovascular: Positive for: Chest Pain Respiratory: Positive for: Cough (dry cough), Shortness of Breath (difficulty breathing) Gastrointestinal: Positive for: Abdominal Pain (epigastric pain). Negative for: Vomiting Physical Exam - Reviewed Nursing Documentation Reviewed: Yes Vital Signs Reviewed: Yes - Physical Exam Appears: Positive for: Non-toxic, No Acute Distress (agitated appearing) Head Exam: Positive for: ATRAUMATIC, NORMAL INSPECTION, NORMOCEPHALIC Skin: Positive for: Normal Color, Warm, Dry Eye Exam: Positive for: Normal appearance ENT: Positive for: Normal ENT Inspection Neck: Positive for: Normal, Painless ROM Cardiovascular/Chest: Positive for: Regular Rate, Rhythm, Tachycardia Respiratory: Positive for: Decreased Breath Sounds (bilaterally). Negative for: Wheezing, Respiratory Distress Gastrointestinal/Abdominal: Positive for: Normal Exam, Soft. Negative for: Tenderness Extremity: Positive for: Normal ROM Neurologic/Psych: Positive for: Alert, Oriented. Negative for: Motor/Sensory Deficits - Laboratory Results Result Diagrams: 05/22/18 13:40 05/22/18 13:40 - ECG ECG Rhythm: Positive for: Normal QRS, Sinus Tachycardia. Negative for: ST/T Changes Rate: 105 O2 Sat by Pulse Oximetry: 97 (RA) Pulse Ox Interpretation: Normal - Progress Re-evaluation Time: 18:25 Condition: Re-examined, Improved Medical Decision Making Medical Decision Making: Initial Impression: chest pain, shortness of breath, and possible alcohol intoxication Differential includes but not limited to COPD exacerbation, ACS, CHF, PE, and alcohol abuse Initial Plan: --ECG --Alcohol serum stat --B-type natriuretic peptide stat --BMP --CMP --Lipase --Troponin --CBC --D dimer --Chest X-ray --Albuterol 3mL INH --Methylprednisolone 125mg IV --Peak flow Scribe Attestation: Documented by Uriel Morelos acting as a scribe for Bob Bhatti MD. Provider Scribe Attestation: All medical record entries made by the Scribe were at my direction and personally dictated by me. I have reviewed the chart and agree that the record accurately reflects my personal performance of the history, physical exam, medical decision making, and the department course for this patient. I have also personally directed, reviewed, and agree with the discharge instructions and disposition. Disposition - Clinical Impression Clinical Impression: Alcohol abuse, COPD (chronic obstructive pulmonary disease), Chest pain - Patient ED Disposition Is Patient to be Admitted: No Doctor Will See Patient In The: Office Counseled Patient/Family Regarding: Studies Performed, Diagnosis, Need For Followup - Disposition Referrals: Eron Ellis MD [Staff Provider] - Disposition: Routine/Home Disposition Time: 18:27 Condition: GOOD Additional Instructions: SHAUNNA MIGUEL, thank you for letting us take care of you today. Your provider was Bob Bhatti MD and you were treated for ASTHMA. The emergency medical care you received today was directed at your acute symptoms. If you were prescribed any medication, please fill it and take as directed. It may take several days for your symptoms to resolve. Return to the Emergency Department if your symptoms worsen, do not improve, or if you have any other problems. Please contact your doctor or call one of the physicians/clinics you have been referred to that are listed on the Patient Visit Information form that is included in your discharge packet. Bring any paperwork you were given at discharge with you along with any medications you are taking to your follow up visit. Our treatment cannot replace ongoing medical care by a primary care provider outside of the emergency department. Thank you for allowing the [facility] team to be part of your care today. If you had an X-Ray or CT scan: A Radiologist will review the ED reading if any change in treatment is needed we will contact you. If you had a blood, urine, or wound culture: It will take several days for the results, if any change in treatment is needed we will contact you. If you had an STI test: It will take 48 hours for the results. Please call after 1 week if you have not heard back. Prescriptions: Albuterol Sulfate [Proair Hfa] 2 puff IH Q4 PRN #1 inh PRN Reason: Shortness Of Breath Instructions: Exacerbation of COPD, Chest Pain, Alcohol Use - When Is Drinking a Problem? TRICE Risk Score for UA/NSTEMI - TRICE Risk Score Age > 64: NO 3 or more CAD Risk Factors: NO Known CAD (Stenosis greater than 50%): NO Aspirin use in past 7 days: NO Severe Angina: NO EKG ST changes greater than 0.5mm: NO Positive Cardiac Marker: NO TRICE Score: 0 % risk at 14 days of: all cause mortality, new or recurrent CT, or severe recurrent ischemia requiring urgen revascularization: 5%
[2018-05-22 14:03] LABS: ALB/GLOB RATIO 1.1 (1.0-2.1); ALBUMIN 4.2 g/dL (3.5-5.0); ALT/SGPT 25 U/L (21-72); AST/SGOT 22 U/L (17-59); BLOOD UREA NITROGEN 23 mg/dl (9-20); CALCIUM 9.4 mg/dL (8.4-10.2); GFR NON-AFRICAN AMERICAN > 60; LIPASE 162 U/L (23-300)
[2018-05-22 14:10] VITALS: PULSE 105
[2018-05-22 14:13] LABS: B-TYPE NATRIURETIC PEPTIDE 43.3 pg/ml (0-900)
[2018-05-22] MEDS ORDERED: Albuterol-Ipratrop 3 mg / 0.5 (3 ml) UD ONE (14:17)
--- NOTE | 2018-05-22 15:01 | RAD ---
Date of service: 05/22/2018 PROCEDURE: CHEST RADIOGRAPH, 1 VIEW HISTORY: dyspnea COMPARISON: 05/10/2018 FINDINGS: LUNGS: Clear. PLEURA: No pneumothorax or pleural fluid seen. CARDIOVASCULAR: No aortic atherosclerotic calcification present. Normal. OSSEOUS STRUCTURES: No significant abnormalities. VISUALIZED UPPER ABDOMEN: Normal. OTHER FINDINGS: None. IMPRESSION: No active disease. No acute/significant interval changes.
--- NOTE | 2018-05-23 23:07 | CARD ---
APPROVED REPORT Date of service: 05/22/2018 EKG Measurement Heart [id number] <Conclusion> Sinus tachycardia Inferior infarct, age undetermined Abnormal ECG
== END 2018-05-22 18:40 | disposition home or self-care (01) ==
LOC: H.ER 12:23
DX: J44.9 Chronic obstructive pulmonary disease, unspecified (principal); F10.10 Alcohol abuse, uncomplicated; Z86.59 Personal history of other mental and behavioral disorders; I10 Essential (primary) hypertension; E11.9 Type 2 diabetes mellitus without complications; J45.909 Unspecified asthma, uncomplicated; Z79.4 Long term (current) use of insulin; Z79.82 Long term (current) use of aspirin; E78.00 Pure hypercholesterolemia, unspecified; Z79.899 Other long term (current) drug therapy
CPT/HCPCS: 71045; 80053; 82948; 83690; 83880; 84484; 85025; 85378; 93005; 94640; 96374; 99285; G0480; J2930

== ENCOUNTER 2018-05-23 11:31 | Emergency (ER) | payer MEDICARE, OTHER ==
[2018-05-23 11:31] VITALS: BMI 30.7
[2018-05-23] MEDS ORDERED: Albuterol-Ipratrop 3 mg / 0.5 (3 ml) UD INH STA ×2 (13:00→14:26)
[2018-05-23] MEDS ORDERED: Albuterol-Ipratrop 3 mg / 0.5 (3 ml) UD ONE ×2 (13:15→14:39)
--- NOTE | 2018-05-23 13:54 | ED PDOC ---
HPI: SOB/CHF/COPD Time Seen by Provider: 05/23/18 12:30 Chief Complaint (Nursing): Shortness Of Breath Chief Complaint (Provider): Shortness of breath History Per: Patient History/Exam Limitations: no limitations Current Symptoms Are (Timing): Still Present Additional Complaint(s): 62 year old male presents to the ED with difficulty breathing. Patient has recently been to the ED nearly daily for the same complaints. Patient admits to drinking overnight and smoking 1.5 packs of cigarettes a day. He states he has not been taking home medications. Patient reports he comes to the ED because he gets better medication here in the ED than at home but is unsure of the medications he takes. Of note, patient smells of alcohol and tobacco. Patient is a poor historian. PMD: none Past Medical History Reviewed: Historical Data, Nursing Documentation, Vital Signs Vital Signs: Last Vital Signs Temp 98.4 F 05/23/18 11:38 Pulse 99 H 05/23/18 11:38 Resp 22 05/23/18 11:38 BP 144/93 H 05/23/18 11:38 Pulse Ox 94 L 05/23/18 11:38 - Medical History PMH: Asthma, Bipolar Disorder, COPD, Diabetes, Emphysema, Fractures, HTN, Hypercholesterolemia, Hyperlipidemia, Schizophrenia Denies: Alzheimer's Disease, Anemia, Anxiety, Arthritis, Atrial Fibrillation, Bronchitis, CAD, Cardia Arrhythmia, CHF, Crohn's Disease, Dementia, Depression, Diverticulitis, Gastritis, Gall Bladder Disease, Hepatitis, HIV, Hyperthyroidism, Hypothyroidism, Kidney Stones, Migraine, Mitral Valve Prolapse, Multiple Sclerosis, Osteoporosis, Pancreatitis, Paranoia, Parkinson's Disease, Peripheral Edema, Pneumonia, Post Traumatic Stress Disorder, Pulmonary Embolism, Chronic Kidney Disease, Rheumatoid Arthritis, Seizures, Sickle Cell Disease, Sexually Transmitted Disease, Sleep Apnea, TIA - Surgical History Surgical History: Denies: Appendectomy, CABG, Carotid Endarterectomy, Cholecystectomy, Coronary Stent, Pacemaker, Tonsillectomy - Family History Family History: States: Unknown Family Hx - Home Medications Home Medications: Ambulatory Orders Medication Instructions Recorded RX: Aspirin [Ecotrin] 81 mg PO DAILY 05/08/18 RX: Clopidogrel [Plavix] 75 mg PO DAILY 05/08/18 RX: Ergocalciferol (Vitamin D2) 50,000 unit PO QWK 05/08/18 [Vitamin D2] RX: Gabapentin [Neurontin] 300 mg PO Q8 05/08/18 RX: Insulin Lispro Mix 75/25 35 unit SC QPM 05/08/18 [HumaLOG Mix 75/25] RX: Insulin Lispro Mix 75/25 50 unit SC DAILY 05/08/18 [HumaLOG Mix 75/25] RX: Losartan [Cozaar] 25 mg PO DAILY 05/08/18 RX: MetFORMIN [glucoPHAGE] 1,000 mg PO BID 05/08/18 RX: Rosuvastatin Calcium [Crestor] 10 mg PO HS 05/08/18 RX: Tiotropium Br/Olodaterol HCl 2 puff IH DAILY 05/08/18 [Stiolto Respimat Inhal [place]] RX: Gabapentin [Neurontin] 300 mg PO Q8 30 Days #90 cap 05/13/18 RX: QUEtiapine [SEROquel] 300 mg PO HS 30 Days #30 tab 05/13/18 RX: Thiamine [Vitamin B1 Tab] 100 mg PO DAILY tab 05/13/18 RX: guaiFENesin/Dextromethorphan 10 ml PO Q6 PRN udc 05/13/18 [Robitussin DM] RX: Albuterol Sulfate [Proair Hfa] 2 puff IH Q4 PRN #1 inh 05/22/18 RX: Azithromycin [Z-Gary] 250 mg PO DAILY #6 tab 05/23/18 - Allergies Allergies/Adverse Reactions: Allergies Allergy/AdvReac Type Severity Reaction Status Date / Time No Known Allergies Allergy Verified 05/22/18 12:28 Review of Systems ROS Statement: Except As Marked, All Systems Reviewed And Found Negative Respiratory: Positive for: Shortness of Breath Physical Exam - Reviewed Nursing Documentation Reviewed: Yes Vital Signs Reviewed: Yes - Physical Exam Appears: Positive for: Non-toxic, No Acute Distress (appears disheveled and with poor hygiene) Head Exam: Positive for: ATRAUMATIC, NORMOCEPHALIC Skin: Positive for: Normal Color, Warm, Dry Eye Exam: Positive for: Normal appearance Neck: Positive for: Normal, Painless ROM Cardiovascular/Chest: Positive for: Regular Rate, Rhythm, Tachycardia Respiratory: Positive for: Wheezing (mild wheezing bilaterally) Gastrointestinal/Abdominal: Positive for: Normal Exam, Soft. Negative for: Tenderness Extremity: Positive for: Normal ROM Neurologic/Psych: Positive for: Alert, Oriented - Laboratory Results Result Diagrams: 05/23/18 15:56 05/23/18 15:56 - ECG O2 Sat by Pulse Oximetry: 94 (RA) Pulse Ox Interpretation: Normal Medical Decision Making Medical Decision Making: Initial Impression: workup for asthma exacerbation Initial Plan: --Albuterol 3mL INH --Prednisone 60mg PO --Peak flow Patient is tachycardic at this time. Will consider further workup if tachycardia is not resolved with breathing treatments and hydration. Patient seen eating and then sleeping comfortably. Will reevaluate patient. 1700 Basic workup showed elevated lactate, elevated WBC, and elevated BUN/creatine. Pt told of all of these conditions and the need for antibiotics and admission. Pt refusing admission. Pt states he will take oral antibiotics at home. Pt oriented to person, place, and time and says that he lives with a domestic partner who helps take care of him. Pt has been explained risks of leaving and has signed AMA form. Rx for Azithromycin and pt will follow up with primary doctor and also given referral to outpatient clinic. Pt to return to the emergency department if symptoms worsen or if new symptoms develop. Scribe Attestation: Documented by Uriel Morelos acting as a scribe for Sabina Wren MD. Provider Scribe Attestation: All medical record entries made by the Scribe were at my direction and personally dictated by me. I have reviewed the chart and agree that the record accurately reflects my personal performance of the history, physical exam, medical decision making, and the department course for this patient. I have also personally directed, reviewed, and agree with the discharge instructions and disposition. Disposition - Clinical Impression Clinical Impression: COPD (chronic obstructive pulmonary disease), Upper respiratory infection - Disposition Disposition: Routine/Home Disposition Time: 17:00 Condition: STABLE Additional Instructions: Follow up with primary medical doctor. Return to the emergency department if symptoms worsen or if new symptoms develop. Take antibiotics every day as prescribed. Prescriptions: RX: Azithromycin [Z-Gary] 250 mg PO DAILY #6 tab Instructions: Chronic Obstructive Pulmonary Disease (COPD), Including Emphysema, Bacterial Upper Respiratory Infection, Adult Forms: [facility] ([place]) Print Language: GERMAN
[2018-05-23 16:06] LABS: BASO # 0.1 K/uL (0.0-0.2); HEMOGLOBIN 12.9 g/dL (12.0-18.0); LYMPH # 1.7 K/uL (1.0-4.3); LYMPH % 14.9 % (20.0-40.0); MEAN CELL VOLUME 91.2 fl (80.0-94.0); MEAN CORPUSCULAR HEMOGLOBIN 30.1 pg (27.0-31.0); MEAN PLATELET VOLUME 7.4 fl (7.2-11.7); MONO # 0.7 K/uL (0.0-0.8); MONO % 5.8 % (0.0-10.0); NEUT % 78.3 % (50.0-75.0); RBC 4.31 Mil/uL (4.40-5.90); RED CELL DISTRIBUTION WIDTH 14.9 % (11.5-14.5); WHITE BLOOD COUNT 11.5 K/uL (4.8-10.8)
[2018-05-23 16:15] LABS: ABG ALLEN TEST YES; ARTERIAL BLOOD GAS HCO3 20.9 mmol/L (21-28); ARTERIAL BLOOD GAS O2 SAT 93.3 % (95-98); ARTERIAL BLOOD GAS PCO2 35 mm/Hg (35-45); ARTERIAL BLOOD GAS PH 7.36 (7.35-7.45); ARTERIAL BLOOD GAS PO2 60 mm/Hg (80-100); ARTERIAL BLOOD GAS TCO2 20.9 mmol/L (22-28)
[2018-05-23] MEDS ORDERED: Sodium Chloride 0.9% 1,000 ML IV STA ×2 (16:30→16:31)
[2018-05-23 16:53] LABS: CALCIUM 9.5 mg/dL (8.4-10.2)
[2018-05-23 18:15] VITALS: BP 148/82; PULSE 105; RESP 18; TEMP 98.5
--- NOTE | 2018-05-24 10:54 | RAD ---
Date of service: 05/23/2018 HISTORY: cough, tachycardia, SOB COMPARISON: 05/22/2018 TECHNIQUE: Chest PA and lateral FINDINGS: LUNGS: No active pulmonary disease. PLEURA: No significant pleural effusion identified. No pneumothorax apparent. CARDIOVASCULAR: No aortic atherosclerotic calcification present. Normal cardiac size. No pulmonary vascular congestion. OSSEOUS STRUCTURES: No significant abnormalities. VISUALIZED UPPER ABDOMEN: Normal. OTHER FINDINGS: None. IMPRESSION: No active disease.
[2018-05-24 17:07] VITALS: O2SAT 94
== END 2018-05-23 18:10 | disposition left against medical advice (07) ==
LOC: H.ER 11:31
DX: J44.9 Chronic obstructive pulmonary disease, unspecified (principal); J06.9 Acute upper respiratory infection, unspecified; I10 Essential (primary) hypertension; Z79.4 Long term (current) use of insulin
CPT/HCPCS: 36600; 71046; 80048; 82803; 85025; 87804; 94640; 99285; J7030

== ENCOUNTER 2018-05-24 19:24 | Emergency (ER) | payer MEDICARE ==
[2018-05-24 19:25] VITALS: BMI 30.7
[2018-05-24 19:30] VITALS: RESP 16; O2SAT 99
--- NOTE | 2018-05-24 21:51 | ED PDOC ---
HPI: Psych/Substance Abuse Time Seen by Provider: 05/24/18 19:42 Chief Complaint (Nursing): Alcohol Ingestion Chief Complaint (Provider): Alcohol Ingestion ED Caveat: Intoxicated History Per: Patient History/Exam Limitations: no limitations Additional Complaint(s): 62 year old male presents to the ED via EMS for alcohol intoxication. Patient initially complained of shortness of breath which he denied in triage. Patient has no complaints right now. He states he is hungry and is requesting a sandwich. He denies any injury and states he feels well. History is limited due to intoxication. PMD: none Past Medical History Reviewed: Historical Data, Nursing Documentation, Vital Signs Vital Signs: Last Vital Signs Temp 98.7 F 05/24/18 19:33 Pulse 96 H 05/24/18 19:33 Resp 16 05/24/18 19:33 BP 150/103 H 05/24/18 19:33 Pulse Ox 99 05/24/18 19:33 - Medical History PMH: Asthma, Bipolar Disorder, COPD, Diabetes, Emphysema, Fractures, HTN, Hypercholesterolemia, Hyperlipidemia, Schizophrenia Denies: Alzheimer's Disease, Anemia, Anxiety, Arthritis, Atrial Fibrillation, Bronchitis, CAD, Cardia Arrhythmia, CHF, Crohn's Disease, Dementia, Depression, Diverticulitis, Gastritis, Gall Bladder Disease, Hepatitis, HIV, Hyperthyroidism, Hypothyroidism, Kidney Stones, Migraine, Mitral Valve Prolapse, Multiple Sclerosis, Osteoporosis, Pancreatitis, Paranoia, Parkinson's Disease, Peripheral Edema, Pneumonia, Post Traumatic Stress Disorder, Pulmonary Embolism, Chronic Kidney Disease, Rheumatoid Arthritis, Seizures, Sickle Cell Disease, Sexually Transmitted Disease, Sleep Apnea, TIA - Surgical History Surgical History: Denies: Appendectomy, CABG, Carotid Endarterectomy, Cholecystectomy, Coronary Stent, Pacemaker, Tonsillectomy - Family History Family History: States: Unknown Family Hx - Home Medications Home Medications: Ambulatory Orders Medication Instructions Recorded Aspirin [Ecotrin] 81 mg PO DAILY 05/08/18 Clopidogrel [Plavix] 75 mg PO DAILY 05/08/18 Ergocalciferol (Vitamin D2) 50,000 unit PO QWK 05/08/18 [Vitamin D2] Gabapentin [Neurontin] 300 mg PO Q8 05/08/18 Insulin Lispro Mix 75/25 [HumaLOG 35 unit SC QPM 05/08/18 Mix 75/25] Insulin Lispro Mix 75/25 [HumaLOG 50 unit SC DAILY 05/08/18 Mix 75/25] Losartan [Cozaar] 25 mg PO DAILY 05/08/18 MetFORMIN [glucoPHAGE] 1,000 mg PO BID 05/08/18 Rosuvastatin Calcium [Crestor] 10 mg PO HS 05/08/18 Tiotropium Br/Olodaterol HCl 2 puff IH DAILY 05/08/18 [Stiolto Respimat Inhal [place]] Gabapentin [Neurontin] 300 mg PO Q8 30 Days #90 cap 05/13/18 QUEtiapine [SEROquel] 300 mg PO HS 30 Days #30 tab 05/13/18 Thiamine [Vitamin B1 Tab] 100 mg PO DAILY tab 05/13/18 guaiFENesin/Dextromethorphan 10 ml PO Q6 PRN udc 05/13/18 [Robitussin DM] Albuterol Sulfate [Proair Hfa] 2 puff IH Q4 PRN #1 inh 05/22/18 Azithromycin [Z-Gary] 250 mg PO DAILY #6 tab 05/23/18 - Allergies Allergies/Adverse Reactions: Allergies Allergy/AdvReac Type Severity Reaction Status Date / Time No Known Allergies Allergy Verified 05/24/18 19:33 Review of Systems ROS Statement: Except As Marked, All Systems Reviewed And Found Negative Physical Exam - Reviewed Nursing Documentation Reviewed: Yes Vital Signs Reviewed: Yes - Physical Exam Appears: Positive for: Non-toxic, No Acute Distress Head Exam: Positive for: ATRAUMATIC, NORMOCEPHALIC Skin: Positive for: Normal Color, Warm, Dry Eye Exam: Positive for: Normal appearance Neck: Positive for: Normal, Painless ROM Cardiovascular/Chest: Positive for: Regular Rate, Rhythm Respiratory: Positive for: Normal Breath Sounds. Negative for: Wheezing, Respiratory Distress Gastrointestinal/Abdominal: Positive for: Normal Exam, Soft. Negative for: Tenderness Extremity: Positive for: Normal ROM Neurologic/Psych: Positive for: Alert, Oriented. Negative for: Motor/Sensory Deficits - ECG O2 Sat by Pulse Oximetry: 99 (RA) Pulse Ox Interpretation: Normal Medical Decision Making Medical Decision Making: Pt. rested in ED for 4 hrs. On reassessment, feels well, alert, ambulating with steady gait, clinically sober. Repeat bp 155/86, HR 78. Scribe Attestation: Documented by Uriel Morelos acting as a scribe for Gi HERNANDEZ. Provider Scribe Attestation: All medical record entries made by the Scribe were at my direction and personally dictated by me. I have reviewed the chart and agree that the record accurately reflects my personal performance of the history, physical exam, medical decision making, and the department course for this patient. I have also personally directed, reviewed, and agree with the discharge instructions and disposition. Disposition - Clinical Impression Clinical Impression: Alcohol use - Patient ED Disposition Is Patient to be Admitted: No Counseled Patient/Family Regarding: Diagnosis, Need For Followup - Disposition Referrals: [facility] [Outside] Disposition: Routine/Home Disposition Time: 23:48 Condition: STABLE Instructions: Alcohol Use - When Is Drinking a Problem? Forms: [facility] (Turkmen) Print Language: NIGERIEN
[2018-05-24 23:51] VITALS: BP 116/80; PULSE 101; TEMP 98.6
== END 2018-05-24 23:51 | disposition home or self-care (01) ==
LOC: H.ER 19:24
DX: F10.129 Alcohol abuse with intoxication, unspecified (principal); E11.9 Type 2 diabetes mellitus without complications; Z79.4 Long term (current) use of insulin

== ENCOUNTER 2018-06-23 14:58 | Emergency (ER) | payer MEDICARE, OTHER ==
[2018-06-23 14:59] VITALS: BMI 30.7
[2018-06-23 15:03] VITALS: PULSE 90; RESP 18
--- NOTE | 2018-06-23 15:57 | ED PDOC ---
HPI: Psych/Substance Abuse Time Seen by Provider: 06/23/18 15:05 Chief Complaint (Nursing): Alcohol Ingestion Chief Complaint (Provider): Alcohol Ingestion, Chest Pain, Fall History Per: Patient, EMS History/Exam Limitations: no limitations Current Symptoms Are (Timing): Still Present Additional Complaint(s): 63 year old male presents to the ED via EMS complaining of falling to the ground earlier today after admitted alcohol consumption. He notes left sided chest pain most notably and otherwise denies leg pain (contrary to triage note), head injury, neck pain, abdominal pain, shortness of breath, loss of consciousness, nausea, vomiting, and anti-coagulant use. PMD: Ham Burk Past Medical History Reviewed: Historical Data, Nursing Documentation, Vital Signs Vital Signs: Last Vital Signs Temp 98.7 F 06/23/18 15:00 Pulse 90 06/23/18 15:00 Resp 18 06/23/18 15:00 BP 130/89 06/23/18 15:00 Pulse Ox 99 06/23/18 15:00 - Medical History PMH: Asthma, Bipolar Disorder, COPD, Diabetes, Emphysema, Fractures, HTN, Hypercholesterolemia, Hyperlipidemia, Schizophrenia Denies: Alzheimer's Disease, Anemia, Anxiety, Arthritis, Atrial Fibrillation, Bronchitis, CAD, Cardia Arrhythmia, CHF, Crohn's Disease, Dementia, Depression, Diverticulitis, Gastritis, Gall Bladder Disease, Hepatitis, HIV, Hyperthyroidism, Hypothyroidism, Kidney Stones, Migraine, Mitral Valve Prolapse, Multiple Sclerosis, Osteoporosis, Pancreatitis, Paranoia, Parkinson's Disease, Peripheral Edema, Pneumonia, Post Traumatic Stress Disorder, Pulmonary Embolism, Chronic Kidney Disease, Rheumatoid Arthritis, Seizures, Sickle Cell Disease, Sexually Transmitted Disease, Sleep Apnea, TIA - Surgical History Surgical History: No Surg Hx Denies: Appendectomy, CABG, Carotid Endarterectomy, Cholecystectomy, Coronary Stent, Pacemaker, Tonsillectomy - Family History Family History: States: Unknown Family Hx - Home Medications Home Medications: Ambulatory Orders Medication Instructions Recorded RX: Aspirin [Ecotrin] 81 mg PO DAILY 05/08/18 RX: Clopidogrel [Plavix] 75 mg PO DAILY 05/08/18 RX: Ergocalciferol (Vitamin D2) 50,000 unit PO QWK 05/08/18 [Vitamin D2] RX: Gabapentin [Neurontin] 300 mg PO Q8 05/08/18 RX: Insulin Lispro Mix 75/25 35 unit SC QPM 05/08/18 [HumaLOG Mix 75/25] RX: Insulin Lispro Mix 75/25 50 unit SC DAILY 05/08/18 [HumaLOG Mix 75/25] RX: Losartan [Cozaar] 25 mg PO DAILY 05/08/18 RX: MetFORMIN [glucoPHAGE] 1,000 mg PO BID 05/08/18 RX: Rosuvastatin Calcium [Crestor] 10 mg PO HS 05/08/18 RX: Tiotropium Br/Olodaterol HCl 2 puff IH DAILY 05/08/18 [Stiolto Respimat Inhal [place]] RX: Gabapentin [Neurontin] 300 mg PO Q8 30 Days #90 cap 05/13/18 RX: QUEtiapine [SEROquel] 300 mg PO HS 30 Days #30 tab 05/13/18 RX: Thiamine [Vitamin B1 Tab] 100 mg PO DAILY tab 05/13/18 RX: guaiFENesin/Dextromethorphan 10 ml PO Q6 PRN udc 05/13/18 [Robitussin DM] RX: Albuterol Sulfate [Proair Hfa] 2 puff IH Q4 PRN #1 inh 05/22/18 RX: Azithromycin [Z-Gary] 250 mg PO DAILY #6 tab 05/23/18 - Allergies Allergies/Adverse Reactions: Allergies Allergy/AdvReac Type Severity Reaction Status Date / Time No Known Allergies Allergy Verified 06/23/18 15:00 Review of Systems ROS Statement: Except As Marked, All Systems Reviewed And Found Negative Constitutional: Negative for: Other (head injury) Cardiovascular: Positive for: Chest Pain (left sided) Respiratory: Negative for: Shortness of Breath Gastrointestinal: Negative for: Nausea, Vomiting, Abdominal Pain Musculoskeletal: Negative for: Neck Pain, Leg Pain Neurological: Negative for: Other (loss of consciousness) Psych: Positive for: Other (alcohol ingestion) Physical Exam - Reviewed Nursing Documentation Reviewed: Yes Vital Signs Reviewed: Yes - Physical Exam Appears: Positive for: No Acute Distress Head Exam: Positive for: ATRAUMATIC, NORMAL INSPECTION, NORMOCEPHALIC Skin: Positive for: Normal Color, Warm, DRY Eye Exam: Positive for: EOMI, Normal appearance, PERRL ENT: Positive for: Normal ENT Inspection Neck: Positive for: Normal, Painless ROM, Supple Cardiovascular/Chest: Positive for: Regular Rate, Rhythm. Negative for: Chest Non Tender (exquisite left side axillary chest wall tenderness) Respiratory: Positive for: Normal Breath Sounds. Negative for: Respiratory Distress Gastrointestinal/Abdominal: Positive for: Normal Exam, Soft. Negative for: Tenderness (to deep palpation; no ecchymosis ) Back: Positive for: Normal Inspection Extremity: Positive for: Normal ROM (all extremities) Neurologic/Psych: Positive for: Alert (and awake), Oriented (x3) - Laboratory Results Result Diagrams: 06/23/18 15:47 06/23/18 15:47 - ECG ECG: Positive for: Interpreted By Me, Viewed By Me ECG Rhythm: Positive for: Normal ST Segment, Sinus Rhythm (normal at 86bpm). Negative for: ST/T Changes O2 Sat by Pulse Oximetry: 99 (RA) Pulse Ox Interpretation: Normal - Progress ED Course And Treament: CT head, c-spine, chest w/o contrast: negative. 2114 On re-evaluation, pt. in no distress. Reports feeling better. Requesting to be dc'd. Gait steady, unassisted. No slurred speech. Clinically sober. Medical Decision Making Medical Decision Making: Time: 1521 Initial Impression: alcohol ingestion, chest pain Initial Plan: --Type and screen --C-spine CT --Chest CT --Head CT --EKG --Alcohol serum --CMP --Drug screen --Trop I --CBC with differential --PT / PTT --Accucheck --Urinalysis Scribe Attestation: Documented by Kell Cyr, acting as a scribe for Solitario Chau PA-C. Provider Scribe Attestation: All medical record entries made by the Scribe were at my direction and personally dictated by me. I have reviewed the chart and agree that the record accurately reflects my personal performance of the history, physical exam, medical decision making, and the department course for this patient. I have also personally directed, reviewed, and agree with the discharge instructions and disposition. Disposition - Clinical Impression Clinical Impression: Alcohol intoxication, Chest wall injury, Fall - Patient ED Disposition Is Patient to be Admitted: No - Disposition Referrals: [facility] [Outside] Disposition: Routine/Home Disposition Time: 21:20 Condition: IMPROVED Additional Instructions: SHAUNNA MIGUEL, thank you for letting us take care of you today. Your provider was Thad Field MD and you were treated for ETOH, FALL INJURY. The emergency medical care you received today was directed at your acute symptoms. If you were prescribed any medication, please fill it and take as directed. It may take several days for your symptoms to resolve. Return to the Emergency Department if your symptoms worsen, do not improve, or if you have any other problems. Please contact your doctor or call one of the physicians/clinics you have been referred to that are listed on the Patient Visit Information form that is included in your discharge packet. Bring any paperwork you were given at discharge with you along with any medications you are taking to your follow up visit. Our treatment cannot replace ongoing medical care by a primary care provider outside of the emergency department. Thank you for allowing the [facility] team to be part of your care today. If you had an X-Ray or CT scan: A Radiologist will review the ED reading if any change in treatment is needed we will contact you. If you had a blood, urine, or wound culture: It will take several days for the results, if any change in treatment is needed we will contact you. If you had an STI test: It will take 48 hours for the results. Please call after 1 week if you have not heard back. Instructions: Alcohol Use - When Is Drinking a Problem?, Alcohol Abuse and Alcoholism (DC) Forms: [employer] (Macedonian)
[2018-06-23 16:12] LABS: BASO # 0.1 K/uL (0.0-0.2); BASO % 1.2 % (0.0-2.0); EOS # 0.1 K/uL (0.0-0.7); EOS % 1.2 % (0.0-4.0); HEMOGLOBIN 13.6 g/dL (12.0-18.0); LYMPH # 2.2 K/uL (1.0-4.3); LYMPH % 46.2 % (20.0-40.0); MEAN CELL VOLUME 91.5 fl (80.0-94.0); MEAN CORPUSCULAR HGB CONC 32.8 g/dL (33.0-37.0); MONO # 0.4 K/uL (0.0-0.8); MONO % 7.9 % (0.0-10.0); NEUT # 2.1 K/uL (1.8-7.0); NEUT % 43.5 % (50.0-75.0); NRBC % 0.2 % (0.0-0.0); RBC 4.53 Mil/uL (4.40-5.90); RED CELL DISTRIBUTION WIDTH 16.4 % (11.5-14.5); WHITE BLOOD COUNT 4.7 K/uL (4.8-10.8)
--- NOTE | 2018-06-23 16:27 | CT ---
Date of service: 06/23/2018 PROCEDURE: CT HEAD WITHOUT CONTRAST. HISTORY: fall COMPARISON: Noncontrast head CT 05/27/2017. TECHNIQUE: Axial computed tomography images were obtained through the head/brain without intravenous contrast. Radiation dose: Total exam DLP = 1120.31 mGy-cm. This CT exam was performed using one or more of the following dose reduction techniques: Automated exposure control, adjustment of the mA and/or kV according to patient size, and/or use of iterative reconstruction technique. FINDINGS: HEMORRHAGE: No intracranial hemorrhage. BRAIN: Good corticomedullary differentiation is seen. Reiterated diffuse cerebral atrophy and chronic microangiopathy. No suspicious extra-axial fluid collection is identified and the midline brain anatomy appears grossly nonfocal as imaged. No mass effect identified. VENTRICLES: Unremarkable. No hydrocephalus. CALVARIUM: No destructive bony lesion or displaced fracture identified including through the skullbase. PARANASAL SINUSES: Multifocal mild sinusitis changes are seen throughout the bilateral maxillary and ethmoid sinuses with minimal involvement of the bilateral sphenoid sinuses as well. MASTOID AIR CELLS: Unremarkable as visualized. No inflammatory changes. OTHER FINDINGS: None. IMPRESSION: Stable age related neuro degenerative changes are appreciate without posttraumatic findings identified as discussed above. Incidental mild sinusitis identified sparing only the bilateral frontal sinuses in the interval.
[2018-06-23 16:29] LABS: ALB/GLOB RATIO 1.2 (1.0-2.1); ALBUMIN 3.9 g/dL (3.5-5.0); ALT/SGPT 25 U/L (21-72); AST/SGOT 28 U/L (17-59); BLOOD UREA NITROGEN 11 mg/dl (9-20); CALCIUM 8.5 mg/dL (8.4-10.2); GFR NON-AFRICAN AMERICAN > 60
--- NOTE | 2018-06-23 16:31 | CT ---
Date of service: 06/23/2018 PROCEDURE: CT Cervical Spine without contrast HISTORY: fall COMPARISON: None available. TECHNIQUE: Axial computed tomography images were obtained of the cervical spine without the use of intravenous contrast. Coronal and sagittal reformatted images were created and reviewed. Radiation dose: Total exam DLP = 389.37 mGy-cm. This CT exam was performed using one or more of the following dose reduction techniques: Automated exposure control, adjustment of the mA and/or kV according to patient size, and/or use of iterative reconstruction technique. FINDINGS: VERTEBRAE: No fracture. Normal alignment. No spondylolisthesis apparent. DISCS/SPINAL CANAL/NEURAL FORAMINA: Normal cervical curvature. No fracture or spondylolisthesis. Degenerative changes seen related to the C1-2 articulation with the odontoid process is intact nevertheless. Craniocervical junction is unremarkable. [id number] multilevel cervical spondylosis identified which is predominantly anterior. Multilevel facet joint degenerative arthropathy is appreciated without subluxation appreciable throughout. No destructive bony lesions identified. No moderate or severe spinal stenosis identified. PARASPINAL SOFT TISSUES: Unremarkable. OTHER FINDINGS: None. IMPRESSION: Normal curvature without fracture or spondylolisthesis evident. Multilevel degenerative changes are identified throughout the mid inferior intervertebral disc spaces and diffusely throughout the facet joints. No severe stenosis appreciable throughout. Further characterization can provided by MRI if clinically warranted.
[2018-06-23 16:43] LABS: INR 0.9; PROTHROMBIN TIME 10.4 Seconds (9.8-13.1)
[2018-06-23 16:46] LABS: PARTIAL THROMBOPLASTIN TIME 30.1 Seconds (25.6-37.1)
--- NOTE | 2018-06-23 16:47 | CT ---
Date of service: 06/23/2018 PROCEDURE: CT Chest without contrast HISTORY: fall, +ETOH COMPARISON: Unenhanced chest CT 10/01/2016. TECHNIQUE: Contiguous axial images were obtained through the chest without intravenous contrast enhancement. Sagittal and coronal reconstructions were performed. Radiation dose: Total exam DLP = 636.71 mGy-cm. This CT exam was performed using one or more of the following dose reduction techniques: Automated exposure control, adjustment of the mA and/or kV according to patient size, and/or use of iterative reconstruction technique. FINDINGS: LUNGS: No definitive infiltrate bilaterally. Central airways are clear. No definitive pulmonary mass is identified. Occasional scattered ground-glass opacities identified bilaterally which is nonspecific. Respiratory motion obscures imaging through the apices. MEDIASTINUM: Normal caliber thoracic aorta. Stable cardiomegaly. Extensive coronary calcifications identified. Main pulmonary artery unremarkable. No vascular congestion. No significant lymphadenopathy. Calcific atherosclerotic changes are seen related to the thoracic aorta. PLEURA: No pleural fluid. No pneumothorax. BONES: No fracture. No destructive lesion. UPPER ABDOMEN: Stable left upper quadrant abdominal calcification separate from the splenic artery of uncertain origin. It appears to abut the inferior margin of the stomach and may reflect calcified gastric diverticulum. OTHER FINDINGS: None. IMPRESSION: Nonspecific scattered ground-glass opacity is seen within the bilateral lungs infrequently, of uncertain origin. No consolidation, pleural or pericardial effusion. No pneumothorax bilaterally. No suspicious pattern to suggest neoplasm at this time. Stable cardiomegaly, dense coronary artery calcifications but no pulmonary vascular congestion.
[2018-06-23 19:26] LABS: BARBITURATES, UR NEGATIVE (NEGATIVE); BENZODIAZEPINES, UR NEGATIVE (NEGATIVE); OPIATES, UR NEGATIVE (NEGATIVE); PHENCYCLIDINE, UR NEGATIVE (NEGATIVE); URINE BILIRUBIN NEGATIVE (NEGATIVE); URINE BLOOD SMALL (NEGATIVE); URINE CLARITY CLEAR (Clear); URINE COLOR YELLOW (YELLOW); URINE GLUCOSE (UA) >=500 mg/dL (NEGATIVE); URINE LEUKOCYTE ESTERASE NEG Leu/uL (Negative); URINE PROTEIN 30 mg/dL (NEGATIVE); URINE UROBILINOGEN 0.2-1.0 mg/dL (0.2-1.0)
[2018-06-23 21:52] VITALS: BP 168/99; TEMP 98.1
--- NOTE | 2018-06-24 10:02 | CARD ---
APPROVED REPORT Date of service: 06/23/2018 EKG Measurement Heart [id number] <Conclusion> Normal sinus rhythm Inferior infarct, age undetermined Abnormal ECG
[2018-06-27 23:19] VITALS: O2SAT 99
== END 2018-06-23 21:58 | disposition home or self-care (01) ==
LOC: H.ER 14:58
DX: F10.129 Alcohol abuse with intoxication, unspecified (principal); S29.9XXA Unspecified injury of thorax, initial encounter; W19.XXXA Unspecified fall, initial encounter; E11.9 Type 2 diabetes mellitus without complications; Z86.59 Personal history of other mental and behavioral disorders; I10 Essential (primary) hypertension; J44.9 Chronic obstructive pulmonary disease, unspecified; Z79.4 Long term (current) use of insulin; Z79.82 Long term (current) use of aspirin; I25.10 Atherosclerotic heart disease of native coronary artery without angina pectoris
CPT/HCPCS: 70450; 71250; 72125; 80053; 81003; 82948; 84484; 85025; 85610; 85730; 86850; 86900; 93005; 99284; G0480

== ENCOUNTER 2018-09-18 15:29 | Emergency (ER) | payer MEDICAID, MEDICARE ==
[2018-09-18 15:29] VITALS: BMI 30.7
[2018-09-18 15:35] VITALS: BP 122/77; PULSE 78; RESP 19; TEMP 98.2; O2SAT 100
--- NOTE | 2018-09-18 15:56 | ED PDOC ---
HPI: Psych/Substance Abuse Time Seen by Provider: 09/18/18 15:40 Chief Complaint (Nursing): Alcohol Ingestion Chief Complaint (Provider): AMS secondary to alcohol ingestion History Per: Patient History/Exam Limitations: intoxication Onset/Duration Of Symptoms: Hrs Current Symptoms Are (Timing): Still Present Modifying Factor(s): Alcohol Additional History Per: EMS (EMS were called for AMS (unknown who called); ) Additional Complaint(s): 63 yo male with history of DM, Bipolar disorder and HTN was brought to the ED by EMS because of AMS. Patient is poor historian at this time given he is intoxicated. EMS reports the call was placed by an unknown person and it was because the patient was altered. As per patient, he was been drinking all day, states he finished 1 bottle of vodka today and has not eaten. States he is a heavy drinker (1/2 gallon of different types of alcohol daily). Reports he does not remember who brought him to the hospital or why he is here. Denies chest pain, shortness of breath, dysuria, frequency, urgency. PMD: Dr. Liang Social: Smokes 1/2 pack of cigarettes a day for an unknown amount of years. Admits to drinking 1/2 gallon of alcohol daily for many years. Denies illicit drug use. Past Medical History Reviewed: Historical Data, Nursing Documentation, Vital Signs Vital Signs: Last Vital Signs Temp 98.2 F 09/18/18 15:31 Pulse 78 09/18/18 15:31 Resp 19 09/18/18 15:31 BP 122/77 09/18/18 15:31 Pulse Ox 100 09/18/18 15:31 Primary Care Provider: Ham Burk - Medical History PMH: Asthma, Bipolar Disorder, COPD, Diabetes, Emphysema, Fractures, HTN, Hypercholesterolemia, Hyperlipidemia, Schizophrenia Denies: Alzheimer's Disease, Anemia, Anxiety, Arthritis, Atrial Fibrillation, Bronchitis, CAD, Cardia Arrhythmia, CHF, Crohn's Disease, Dementia, Depression, Diverticulitis, Gastritis, Gall Bladder Disease, Hepatitis, HIV, Hyperthyroidism, Hypothyroidism, Kidney Stones, Migraine, Mitral Valve Prolapse, Multiple Sclerosis, Osteoporosis, Pancreatitis, Paranoia, Parkinson's Disease, Peripheral Edema, Pneumonia, Post Traumatic Stress Disorder, Pulmonary Embolism, Chronic Kidney Disease, Rheumatoid Arthritis, Seizures, Sickle Cell Disease, Sexually Transmitted Disease, Sleep Apnea, TIA - Surgical History Surgical History: No Surg Hx Denies: Appendectomy, CABG, Carotid Endarterectomy, Cholecystectomy, Coronary Stent, Pacemaker, Tonsillectomy - Family History Family History: States: Unknown Family Hx - Living Arrangements Living Arrangements: Alone - Social History Current smoker - smoking cessation education provided: Yes (1/2 pack for unknown amount of years) Alcohol: Other (Reports drinking 1 bottle of vodka today ; as per patient he drinks 1/2 gallon of different types of alcohol daily) Drugs: Denies - Home Medications Home Medications: Ambulatory Orders Medication Instructions Recorded Aspirin [Ecotrin] 81 mg PO DAILY 05/08/18 Clopidogrel [Plavix] 75 mg PO DAILY 05/08/18 Ergocalciferol (Vitamin D2) 50,000 unit PO QWK 05/08/18 [Vitamin D2] Gabapentin [Neurontin] 300 mg PO Q8 05/08/18 Insulin Lispro Mix 75/25 [HumaLOG 35 unit SC QPM 05/08/18 Mix 75/25] Insulin Lispro Mix 75/25 [HumaLOG 50 unit SC DAILY 05/08/18 Mix 75/25] Losartan [Cozaar] 25 mg PO DAILY 05/08/18 MetFORMIN [glucoPHAGE] 1,000 mg PO BID 05/08/18 Rosuvastatin Calcium [Crestor] 10 mg PO HS 05/08/18 Tiotropium Br/Olodaterol HCl 2 puff IH DAILY 05/08/18 [Stiolto Respimat Inhal [place]] Gabapentin [Neurontin] 300 mg PO Q8 30 Days #90 cap 05/13/18 QUEtiapine [SEROquel] 300 mg PO HS 30 Days #30 tab 05/13/18 Thiamine [Vitamin B1 Tab] 100 mg PO DAILY tab 05/13/18 guaiFENesin/Dextromethorphan 10 ml PO Q6 PRN udc 05/13/18 [Robitussin DM] Albuterol Sulfate [Proair Hfa] 2 puff IH Q4 PRN #1 inh 05/22/18 Azithromycin [Z-Gary] 250 mg PO DAILY #6 tab 05/23/18 - Allergies Allergies/Adverse Reactions: Allergies Allergy/AdvReac Type Severity Reaction Status Date / Time No Known Allergies Allergy Verified 06/23/18 15:00 Review of Systems Constitutional: Negative for: Fever, Chills, Sweats Eyes: Negative for: Pain Cardiovascular: Positive for: Palpitations. Negative for: Chest Pain Gastrointestinal: Positive for: Nausea, Vomiting. Negative for: Abdominal Pain, Diarrhea Genitourinary Male: Negative for: Dysuria, Frequency Skin: Negative for: Rash, Lesions Physical Exam - Reviewed Vital Signs Reviewed: Yes - Physical Exam Appears: Positive for: No Acute Distress (Intoxicated, has odor of alcohol) Head Exam: Positive for: NORMAL INSPECTION (No lesions, or evidence of trauma to the head) Skin: Positive for: Normal Color, Warm, Dry Eye Exam: Positive for: Normal appearance, PERRL Cardiovascular/Chest: Positive for: Regular Rate, Rhythm. Negative for: Gallop, Murmur Respiratory: Positive for: Normal Breath Sounds. Negative for: Crackles, Rales, Rhonchi, Stridor, Wheezing, Respiratory Distress Gastrointestinal/Abdominal: Positive for: Normal Exam, Bowel Sounds, Soft. Negative for: Tenderness (Non tender to palpation), Distended, Guarding, Rebound Extremity: Negative for: Tenderness, Pedal Edema, Calf Tenderness, Swelling Neurological/Psych: Positive for: Oriented (Oriented to himself and to place but not oriented to time and unable to state what happened.) - ECG O2 Sat by Pulse Oximetry: 100 - Progress ED Course And Treament: 63 yo male with history of DM, Bipolar disorder and HTN was brought to the ED by EMS because of AMS secondary to alcohol ingestion. Acute alcohol intoxication Plan: -- Alcohol- serum -- Glucose: 208 -- Accucheck Reassessed @ 1806: Alcohol level 348. Patient is sleeping comfortably, has no complaints at this time. Still only oriented to himself and location, not to time. Will continue to watch. Disposition - Clinical Impression Clinical Impression: Alcohol abuse with intoxication, Alcohol intoxication, Alcohol ingestion - Disposition Referrals: Ham Burk MD [Primary Care Provider] - Condition: STABLE Instructions: Alcohol Abuse and Alcoholism (DC) Forms: [employer] (Eritrean) Patient Signed Over To: Adalberto Keys Handoff Comments: Transfer of care to Dr. Keys - pending sobriety and re- evaluation
--- NOTE | 2018-09-18 19:21 | ED PDOC ---
- ECG O2 Sat by Pulse Oximetry: 100 (RA) Pulse Ox Interpretation: Normal Medical Decision Making Medical Decision Making: Time: 1899 --Patient signed out to this provider by Dr. Field, pending sobriety. Time: 1918 --On revaluation, patient is clinically sober and stable for discharge home. Scribe Attestation: Documented by Fernanda Morelos, acting as a scribe for Adalberto Keys MD. Provider Scribe Attestation: All medical record entries made by the Scribe were at my direction and personally dictated by me. I have reviewed the chart and agree that the record accurately reflects my personal performance of the history, physical exam, medical decision making, and the department course for this patient. I have also personally directed, reviewed, and agree with the discharge instructions and disposition. Disposition - Clinical Impression Clinical Impression: Alcohol abuse with intoxication - POA Present On Arrival: None - Disposition Referrals: Ham Burk MD [Primary Care Provider] - Disposition: Routine/Home Disposition Time: 19:19 Condition: STABLE Instructions: Alcohol Abuse and Alcoholism (DC) Forms: [employer] (Portuguese)
== END 2018-09-18 19:20 | disposition home or self-care (01) ==
LOC: H.ER 15:29
DX: F10.129 Alcohol abuse with intoxication, unspecified (principal); Y90.8 Blood alcohol level of 240 mg/100 ml or more; E11.9 Type 2 diabetes mellitus without complications; F17.210 Nicotine dependence, cigarettes, uncomplicated; Z86.59 Personal history of other mental and behavioral disorders; I10 Essential (primary) hypertension; J44.9 Chronic obstructive pulmonary disease, unspecified; Z79.4 Long term (current) use of insulin; Z79.82 Long term (current) use of aspirin; E78.00 Pure hypercholesterolemia, unspecified

== ENCOUNTER 2018-10-14 09:16 | Emergency (ER) | payer MEDICAID, MEDICARE ==
[2018-10-14 09:20] VITALS: BMI 31.9
[2018-10-14] MEDS ORDERED: Sodium Chloride 0.9% 1,000 ML IV STA (09:33)
--- NOTE | 2018-10-14 09:50 | ED PDOC ---
HPI: Psych/Substance Abuse Time Seen by Provider: 10/14/18 09:24 Chief Complaint (Nursing): Alcohol Ingestion Chief Complaint (Provider): Alcohol Ingestion History Per: Patient History/Exam Limitations: no limitations Onset/Duration Of Symptoms: Hrs Additional Complaint(s): 63 y/o male brought in by EMS presents to the ED complaining of EtOH ingestion. Patient states he has not taken any psych medication today and feels anxious. He admits to drinking rum this morning and is unsure of the amount he drank. Patient denies suicidal ideation or homicidal ideation. PMD: none provided Past Medical History Reviewed: Historical Data, Nursing Documentation, Vital Signs Vital Signs: Last Vital Signs Temp 98.3 F 10/14/18 09:19 Pulse 75 10/14/18 09:19 Resp 15 10/14/18 09:19 BP 119/77 10/14/18 09:19 Pulse Ox 98 10/14/18 09:20 Primary Care Provider: FAMILY PROVIDER,NO - Medical History PMH: Asthma, Bipolar Disorder, COPD, Diabetes, Emphysema, Fractures, HTN, Hypercholesterolemia, Hyperlipidemia, Schizophrenia Denies: Alzheimer's Disease, Anemia, Anxiety, Arthritis, Atrial Fibrillation, Bronchitis, CAD, Cardia Arrhythmia, CHF, Crohn's Disease, Dementia, Depression, Diverticulitis, Gastritis, Gall Bladder Disease, Hepatitis, HIV, Hyperthyroidism, Hypothyroidism, Kidney Stones, Migraine, Mitral Valve Prolapse, Multiple Sclerosis, Osteoporosis, Pancreatitis, Paranoia, Parkinson's Disease, Peripheral Edema, Pneumonia, Post Traumatic Stress Disorder, Pulmonary Embolism, Chronic Kidney Disease, Rheumatoid Arthritis, Seizures, Sickle Cell Disease, Sexually Transmitted Disease, Sleep Apnea, TIA - Surgical History Surgical History: Denies: Appendectomy, CABG, Carotid Endarterectomy, Cholecystectomy, Coronary Stent, Pacemaker, Tonsillectomy - Family History Family History: States: Unknown Family Hx - Home Medications Home Medications: Ambulatory Orders Medication Instructions Recorded Aspirin [Ecotrin] 81 mg PO DAILY 05/08/18 Clopidogrel [Plavix] 75 mg PO DAILY 05/08/18 Ergocalciferol (Vitamin D2) 50,000 unit PO QWK 05/08/18 [Vitamin D2] Gabapentin [Neurontin] 300 mg PO Q8 05/08/18 Insulin Lispro Mix 75/25 [HumaLOG 35 unit SC QPM 05/08/18 Mix 75/25] Insulin Lispro Mix 75/25 [HumaLOG 50 unit SC DAILY 05/08/18 Mix 75/25] Losartan [Cozaar] 25 mg PO DAILY 05/08/18 MetFORMIN [glucoPHAGE] 1,000 mg PO BID 05/08/18 Rosuvastatin Calcium [Crestor] 10 mg PO HS 05/08/18 Tiotropium Br/Olodaterol HCl 2 puff IH DAILY 05/08/18 [Stiolto Respimat Inhal [place]] Gabapentin [Neurontin] 300 mg PO Q8 30 Days #90 cap 05/13/18 QUEtiapine [SEROquel] 300 mg PO HS 30 Days #30 tab 05/13/18 Thiamine [Vitamin B1 Tab] 100 mg PO DAILY tab 05/13/18 guaiFENesin/Dextromethorphan 10 ml PO Q6 PRN udc 05/13/18 [Robitussin DM] Albuterol Sulfate [Proair Hfa] 2 puff IH Q4 PRN #1 inh 05/22/18 Azithromycin [Z-Gary] 250 mg PO DAILY #6 tab 05/23/18 - Allergies Allergies/Adverse Reactions: Allergies Allergy/AdvReac Type Severity Reaction Status Date / Time No Known Allergies Allergy Verified 10/14/18 09:20 Review of Systems ROS Statement: Except As Marked, All Systems Reviewed And Found Negative Psych: Positive for: Anxiety, Other (No homicidal ideation.). Negative for: Suicidal ideation Physical Exam - Reviewed Nursing Documentation Reviewed: Yes Vital Signs Reviewed: Yes - Physical Exam Appears: Positive for: Well, Non-toxic, No Acute Distress Head Exam: Positive for: ATRAUMATIC, NORMAL INSPECTION, NORMOCEPHALIC Skin: Positive for: Normal Color, Warm, Dry Eye Exam: Positive for: EOMI, Normal appearance, PERRL ENT: Positive for: Normal ENT Inspection Neck: Positive for: Normal, Painless ROM, Supple Cardiovascular/Chest: Positive for: Regular Rate, Rhythm. Negative for: Murmur Respiratory: Positive for: Normal Breath Sounds. Negative for: Wheezing Gastrointestinal/Abdominal: Positive for: Normal Exam, Soft. Negative for: Tenderness Back: Positive for: Normal Inspection. Negative for: L CVA Tenderness, R CVA Tenderness Extremity: Positive for: Normal ROM Neurological/Psych: Positive for: Awake (Agitated with slight tremor upper bilaterally. ), Alert, Normal Tone, Oriented (x3). Negative for: Motor/Sensory Deficits - Laboratory Results Result Diagrams: 10/14/18 09:55 10/14/18 09:55 - ECG O2 Sat by Pulse Oximetry: 98 Medical Decision Making Medical Decision Making: Time:932 Impression: Unlikely due to withdraw, more likely need psych medication. Patient drank this morning. Treat IV fluids and give Ativan while waiting for labs. Plan: -EKG -Alcohol serum -CBC -Ativan 1mg PO -Sodium chloride Scribe Attestation: Documented by Precious Rangel, acting as a scribe for Thad Gilbert. Provider Scribe Attestation: All medical record entries made by the Scribe were at my direction and personally dictated by me. I have reviewed the chart and agree that the record accurately reflects my personal performance of the history, physical exam, medical decision making, and the department course for this patient. I have also personally directed, reviewed, and agree with the discharge instructions and disposition. Disposition - Clinical Impression Clinical Impression: Alcohol dependence, Depression - Patient ED Disposition Is Patient to be Admitted: Transfer of Care - Disposition Referrals: Zunilda Chavez MD [Staff Provider] - Disposition: Transfer of Care Disposition Time: 14:00 Condition: STABLE Additional Instructions: Return to ER for any concern for self/ Avoid alcohol and seek rehab/detox. Instructions: Alcohol Use - When Is Drinking a Problem?, Alcohol Withdrawal (DC) Patient Signed Over To: Jim Jansen III (Pending sobriety and crisis eval)
[2018-10-14 10:01] LABS: BASO % 1.2 % (0.0-2.0); EOS # 0.1 K/uL (0.0-0.7); EOS % 1.6 % (0.0-4.0); HEMOGLOBIN 13.9 g/dL (12.0-18.0); LYMPH # 1.6 K/uL (1.0-4.3); LYMPH % 39.1 % (20.0-40.0); MEAN CORPUSCULAR HEMOGLOBIN 31.5 pg (27.0-31.0); MEAN CORPUSCULAR HGB CONC 33.1 g/dL (33.0-37.0); MEAN PLATELET VOLUME 6.8 fl (7.2-11.7); MONO # 0.5 K/uL (0.0-0.8); MONO % 11.6 % (0.0-10.0); NEUT # 1.9 K/uL (1.8-7.0); NEUT % 46.5 % (50.0-75.0); NRBC % 0.1 % (0.0-0.0); RBC 4.4 Mil/uL (4.40-5.90); RED CELL DISTRIBUTION WIDTH 14.6 % (11.5-14.5)
--- NOTE | 2018-10-14 10:23 | CARD ---
APPROVED REPORT Date of service: 10/14/2018 EKG Measurement Heart [id number] <Conclusion> Normal sinus rhythm Inferior infarct, age undetermined Abnormal ECG
[2018-10-14 10:26] LABS: ALB/GLOB RATIO 1.3 (1.0-2.1); ALT/SGPT 43 U/L (21-72); AST/SGOT 71 U/L (17-59); BLOOD UREA NITROGEN 9 mg/dl (9-20); CALCIUM 8.2 mg/dL (8.4-10.2); GFR NON-AFRICAN AMERICAN > 60
--- NOTE | 2018-10-14 14:22 | ED PDOC ---
- Laboratory Results Result Diagrams: 10/14/18 09:55 10/14/18 09:55 Lab Results: Total Bilirubin 0.4 mg/dl (0.2-1.3) 10/14/18 09:55 AST 71 U/L (17-59) H D 10/14/18 09:55 ALT 43 U/L (21-72) 10/14/18 09:55 Alkaline Phosphatase 52 U/L (38-126) 10/14/18 09:55 Total Protein 7.2 G/DL (6.3-8.2) 10/14/18 09:55 Albumin 4.0 g/dL (3.5-5.0) 10/14/18 09:55 Globulin 3.2 gm/dL (2.2-3.9) 10/14/18 09:55 Albumin/Globulin Ratio 1.3 (1.0-2.1) 10/14/18 09:55 - ECG O2 Sat by Pulse Oximetry: 98 (RA) Pulse Ox Interpretation: Normal Medical Decision Making Medical Decision Making: Time: 1899 -- Patient endorsed to me by Dr. Field, pending sobriety and crisis evaluation. re-eval 6pm pt awake and alert, crisis eval to be performed 645p ambulating steady gait no complaints, states wants to go home to feed his dog, cleared by Dr Mena for discharge. Denies SI/HI. Scribe Attestation: Documented by Laureano Montgomery, acting as a scribe for Jim Jansen III, DO. Provider Scribe Attestation: All medical record entries made by the Scribe were at my direction and personally dictated by me. I have reviewed the chart and agree that the record accurately reflects my personal performance of the history, physical exam, medical decision making, and the department course for this patient. I have also personally directed, reviewed, and agree with the discharge instructions and disposition. Disposition - Clinical Impression Clinical Impression: Alcohol dependence, Depression - POA Present On Arrival: None - Disposition Referrals: Zunilda Chavez MD [Staff Provider] - Disposition: Routine/Home Disposition Time: 19:00 Condition: STABLE Additional Instructions: Return to ER for any concern for self/ Avoid alcohol and seek rehab/detox. Instructions: Alcohol Use - When Is Drinking a Problem?, Alcohol Withdrawal (DC)
[2018-10-14 19:00] VITALS: RESP 16
[2018-10-14 19:02] VITALS: BP 120/68; PULSE 82; TEMP 98.1
--- NOTE | 2018-10-15 08:35 | RAD ---
Date of service: 10/14/2018 HISTORY: SOB COMPARISON: 05/23/2018 TECHNIQUE: 1 view obtained. FINDINGS: LUNGS: No active pulmonary disease. PLEURA: No significant pleural effusion identified, no pneumothorax apparent. CARDIOVASCULAR: There is presence of aortic atherosclerotic calcification on x-ray. 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 OSSEOUS STRUCTURES: Mild thoraco lumbar spondylosis. VISUALIZED UPPER ABDOMEN: Normal. OTHER FINDINGS: None. IMPRESSION: No active disease. No interval pathology noted.
[2018-10-15 16:23] VITALS: O2SAT 98
== END 2018-10-14 19:00 | disposition home or self-care (01) ==
LOC: H.ER 09:16 → H.ERHOLD 18:34 → UNDOADMIN 18:34
DX: F10.20 Alcohol dependence, uncomplicated (principal); F32.9 Major depressive disorder, single episode, unspecified; E11.9 Type 2 diabetes mellitus without complications; E78.00 Pure hypercholesterolemia, unspecified; F31.9 Bipolar disorder, unspecified; I10 Essential (primary) hypertension; J44.9 Chronic obstructive pulmonary disease, unspecified; Z79.4 Long term (current) use of insulin
CPT/HCPCS: 71045; 80053; 85025; 93005; 99283; G0480; J7030